=== PATIENT | female | born 1955 | race Caucasian/White ===

== ENCOUNTER → 2018-02-24 07:36 | Outpatient (CLI) | payer OTHER, SELFPAY ==
[2018-02-24 09:06] LABS: Cholesterol 259 mg/dL (140-199); HDL Cholesterol 91 mg/dL (40-60); LDL Cholesterol Calculated 153 mg/dL (<100); Triglycerides 74 mg/dL (35-150)
== END ==
PROVIDERS: Visit Provider Internal Medicine
DX: E78.5 Hyperlipidemia, unspecified (principal)
CPT/HCPCS: 36415; 80061

== ENCOUNTER → 2018-03-07 13:06 | Outpatient (CLI) | payer OTHER, SELFPAY | PROVIDERS: Visit Provider Internal Medicine | DX: M85.852 Other specified disorders of bone density and structure, left thigh (principal); Z78.0 Asymptomatic menopausal state; R29.890 Loss of height; Z82.62 Family history of osteoporosis | CPT/HCPCS: 77080 ==

== ENCOUNTER → 2019-02-24 07:14 | Outpatient (CLI) | payer OTHER, SELFPAY ==
[2019-02-24 08:02] LABS: Add Manual Diff / Slide Review NO; Basophils Absolute Auto 0 /uL (0-100); Basophils Percent Auto 0.8 % (0-2); Eosinophils Absolute Auto 200 /uL (0-450); Eosinophils Percent Auto 3.7 % (2-4); Hematocrit 38.1 % (36-46); Hemoglobin 12.9 g/dL (12.0-16.0); Lymphocytes Absolute Auto 2200 /uL (1100-4500); Lymphocytes Percent Auto 40.2 % (25-40); Mean Corpuscular HGB Conc 33.9 % (30-36); Mean Corpuscular Hemoglobin 29.7 PG (26-34); Mean Corpuscular Volume 87.5 fL (80-100); Monocytes Absolute Auto 400 /uL (0-900); Monocytes Percent Auto 7.3 % (3-14); Neutrophils Absolute Auto 2700 /uL (1500-7000); Platelet Count 205 X10^3/uL (150-400); Red Blood Cell Count 4.35 X10^6/uL (4.0-5.2); Red Cell Distribution Width 13.4 % (11.6-14.8); White Blood Cell Count 5.5 X10^3/uL (4.5-11.0)
[2019-02-24 08:13] LABS: Alanine Aminotransferase 15 IU/L (9-52); Albumin 4.1 g/dL (3.5-5.0); Albumin Globulin Ratio 1.5 (1.0-2.8); Alkaline Phosphatase 84 U/L (38-126); Aspartate Aminotransferase 33 IU/L (14-36); BUN Creatinine Ratio 18.6 (6-22); Bilirubin Total 0.5 mg/dL (0.2-1.3); Blood Urea Nitrogen 13 mg/dL (7-17); Calcium 9.7 mg/dL (8.4-10.2); Carbon Dioxide 30 mmol/L (22-32); Chloride 100 mmol/L (98-107); Cholesterol 272 mg/dL (140-199); Estimated Glomerular Filt Rate > 60.0 mL/min (>60); Globulin 2.7 g/dL (1.7-4.1); Glucose 95 mg/dL (80-110); HDL Cholesterol 84 mg/dL (40-60); HEMOLYSIS < 15 (0-50); LDL Cholesterol Calculated 175 mg/dL (<100); Potassium 4.1 mmol/L (3.4-5.1); Sodium 136 mmol/L (137-145); Total Protein 6.8 g/dL (6.3-8.2); Triglycerides 66 mg/dL (35-150)
[2019-02-24 09:00] LABS: Vitamin B12 388 pg/mL (239-931)
[2019-02-24 09:37] LABS: Iron 66 ug/dL (37-170)
== END ==
PROVIDERS: PCP Family Medicine; Visit Provider Family Medicine
DX: D64.9 Anemia, unspecified (principal); E53.8 Deficiency of other specified B group vitamins
CPT/HCPCS: 36415; 80053; 80061; 82607; 83540; 85025

== ENCOUNTER → 2019-03-25 13:42 | Outpatient (CLI) | payer OTHER, SELFPAY ==
--- NOTE | 2019-03-25 13:43 | DI.MG.S_ITS ---
BILATERAL DIGITAL SCREENING MAMMOGRAM 3D/2D WITH CAD: 03/25/2019 CLINICAL: Routine screening. Comparison is made to exams dated: 01/25/2017 mammogram, 10/21/2014 mammogram, and 09/29/2012 mammogram - [facility]. The tissue of both breasts is extremely dense, which lowers the sensitivity of mammography. Current study was also evaluated with a Computer Aided Detection (CAD) system. No significant masses, calcifications, or other findings are seen in either breast. There has been no significant interval change. IMPRESSION: NEGATIVE There is no mammographic evidence of malignancy. A 1 year screening mammogram is recommended. This exam was interpreted at Station ID: [id number]. NOTE: For mammograms, a report in lay terms will be sent to the patient. Approximately 15% of breast malignancies will not be visualized mammographically. In the management of a palpable breast mass, a negative mammogram must not discourage biopsy of a clinically suspicious lesion. Electronically Signed By: Caroline dunham/carmelina:03/25/2019 14:32:04 letter sent: Normal Exam ACR BI-RADS Category 1: Negative 3341F
== END ==
PROVIDERS: PCP Family Medicine; Visit Provider Family Medicine
DX: Z12.31 Encounter for screening mammogram for malignant neoplasm of breast (principal)
CPT/HCPCS: 77063; 77067

== ENCOUNTER → 2020-04-28 07:10 | Outpatient (CLI) | payer OTHER, SELFPAY ==
[2020-04-28 08:27] LABS: Add Manual Diff / Slide Review NO; Basophils Absolute Auto 0 /uL (0-100); Basophils Percent Auto 0.9 % (0-2); Eosinophils Absolute Auto 100 /uL (0-450); Eosinophils Percent Auto 2.7 % (2-4); Hematocrit 38.1 % (36-46); Hemoglobin 12.7 g/dL (12.0-16.0); Lymphocytes Absolute Auto 1700 /uL (1100-4500); Lymphocytes Percent Auto 38.5 % (25-40); Mean Corpuscular HGB Conc 33.3 % (30-36); Mean Corpuscular Hemoglobin 29.3 PG (26-34); Mean Corpuscular Volume 88.1 fL (80-100); Monocytes Absolute Auto 400 /uL (0-900); Monocytes Percent Auto 8.5 % (3-14); Neutrophils Absolute Auto 2200 /uL (1500-7000); Neutrophils Percent Auto 49.4 % (50-75); Platelet Count 206 X10^3/uL (150-400); Red Blood Cell Count 4.32 X10^6/uL (4.0-5.2); Red Cell Distribution Width 13.7 % (11.6-14.8); White Blood Cell Count 4.5 X10^3/uL (4.5-11.0)
[2020-04-28 08:39] LABS: Alanine Aminotransferase 18 IU/L (<35); Albumin 4.3 g/dL (3.5-5.0); Albumin Globulin Ratio 1.5 (1.0-2.8); Alkaline Phosphatase 88 U/L (38-126); Aspartate Aminotransferase 32 IU/L (14-36); BUN Creatinine Ratio 16.4 (6-22); Bilirubin Total 0.4 mg/dL (0.2-1.3); Blood Urea Nitrogen 12 mg/dL (7-17); Calcium 9.5 mg/dL (8.4-10.2); Carbon Dioxide 29 mmol/L (22-32); Chloride 104 mmol/L (98-107); Cholesterol 249 mg/dL (140-199); Estimated Glomerular Filt Rate > 60.0 mL/min (>60); Globulin 2.9 g/dL (1.7-4.1); Glucose 89 mg/dL (80-110); HDL Cholesterol 84 mg/dL (40-60); HEMOLYSIS < 15 (0-50); LDL Cholesterol Calculated 151 mg/dL (<100); Potassium 3.9 mmol/L (3.4-5.1); Sodium 138 mmol/L (137-145); Total Protein 7.2 g/dL (6.3-8.2); Triglycerides 70 mg/dL (35-150)
[2020-04-28 09:09] LABS: Thyroid Stimulating Hormone 2.88 uIU/mL (0.47-4.68)
== END ==
PROVIDERS: PCP Family Medicine; Referring Provider Family Medicine; Visit Provider Family Medicine
DX: Z13.0 Encounter for screening for diseases of the blood and blood-forming organs and certain disorders involving the immune mechanism (principal); Z13.1 Encounter for screening for diabetes mellitus; Z13.29 Encounter for screening for other suspected endocrine disorder; E78.5 Hyperlipidemia, unspecified
CPT/HCPCS: 36415; 80053; 80061; 84443; 85025

== ENCOUNTER → 2020-06-04 10:17 | Outpatient (CLI) | payer OTHER, SELFPAY ==
[2020-06-05 16:10] LABS: COVID19 Sendout Not Detected (Not Detect)
== END ==
PROVIDERS: PCP Family Medicine; Visit Provider Physician Assistant
DX: Z11.59 Encounter for screening for other viral diseases (principal)
CPT/HCPCS: 87635

== ENCOUNTER 2020-06-07 07:15 | Day surgery (SDC) | payer OTHER, SELFPAY ==
[2020-06-07] VITALS (7 sets, daily range): BP systolic 117–144; BP diastolic 68–77; PULSE 53–77; RESP 10–16; TEMP 36.6–36.7; O2SAT 98–100; BMI 20.1
--- NOTE | 2020-06-07 | PATH_ITS ---
[facility] Accession Number: [id number] . 01 Material submitted: . colon - POLYP AT 70CM . 01 Clinical history: . SDC . 02 Diagnosis: Polyp at 70 cm: Tubular adenoma. MRV 06/09/2020 1525 Local . 02 Electronically signed: . Honey Salazar MD, Pathologist NPI- [id number] . 01 Gross description: . POLYP AT 70CM: Received in formalin is 1 fragment(s) of guerrero, soft tissue measuring 0.4 x 0.3 x 0.2 cm submitted entirely in 1 cassette(s) /ARLET 06/09/2020 0101 Local . 02 Pathologist provided ICD-10: Z12.11, Z86.010, K63.5 . 02 CPT . 428339 Performed at: 01 [facility] [address] [id number] MD Brian Miller MD Phone: [phone] Performed at: 02 [facility] [address] [place], [place] [id number] MD Gabrielle Palacios MD Phone: [phone]
--- NOTE | 2020-06-07 07:46 | PM.HP.1 ---
History of Present Illness History of Present Illness Date Patient Seen: 06/07/20 Time Patient Seen: 07:40 Chief complaint: SDC Narrative: The patient is a woman whose last colonoscopy was about 5 years ago. She had polyps removed. She is here for a screening exam in a high risk screw. No family history of colon cancer. Patient History Medical History Atrial fibrillation (Chronic ~2017) Back problem (Chronic) Depression (Chronic) Migraines (Chronic) Osteoarthritis (Chronic) Osteopenia (Chronic) Scoliosis (Chronic) Skin problem (Chronic) Surgical History History of breast biopsy (Resolved ~1989) Status post wrist surgery (Resolved ~2011) Family & Social History Family History Father Skin cancer Heart disease Hypertension Mother Cancer Brother Hyperlipidemia Sister Skin cancer Grandfather Cancer Grandmother Cancer Grandfather Stroke Social History: household members spouse lives independently Yes Tobacco & Substance use: Smoking Status Never smoker alcohol intake current Substance Use Type does not use Meds Home Medications and Allergies Home Medications Medication Instructions Recorded Confirmed Type supplements - see scans 12/03/18 PO 12/03/18 05/06/20 History acetaminophen 300 mg-codeine 30 mg See Rx Instructions PO DAILY PRN 04/27/19 05/06/20 Rx tablet #60 tab methocarbamol 750 mg tablet 750 mg PO QID #60 tab 05/12/19 05/06/20 Rx sumatriptan succinate 100 mg tablet See Rx Instructions PO .COMPLEX 08/03/19 05/06/20 Rx #10 tab stsxhtrucp-jyqjfebuljyqp-clprxzrx 1 tab PO Q4H PRN #30 tab 10/12/19 05/06/20 Rx 50 mg-325 mg-40 mg tablet trazodone 100 mg tablet See Rx Instructions .ROUTE 04/01/20 05/06/20 Rx .COMPLEX #60 tab hydroquinone 4 % topical cream 1 applictn TOP DAILY #28.35 gram 05/06/20 05/06/20 Rx tretinoin 0.1 % topical cream 1 applictn TOP BEDTIME #20 gram 05/06/20 05/06/20 Rx Allergies Allergy/AdvReac Type Severity Reaction Status Date / Time No Known Drug Allergies Allergy Verified 05/06/20 08:37 Review of Systems Review of Systems ROS: Yes All systems reviewed with the patient and are negative except as otherwise documented Exam Vital Signs (past 8 hours): - 06/07/20 07:34 Temperature 98 F Pulse Rate 62 Respiratory Rate 16 Blood Pressure 144/77 H Pulse Oximetry 99 Oxygen Delivery Method Room Air Narrative Exam Narrative: Pleasant cooperative patient no apparent distress. Lungs are clear to auscultation. No rales or rhonchi. Heart regular rate and rhythm no murmur gallop. Abdomen is soft nontender without mass. No obvious hernias. Patient is alert and oriented x3. Assessment & Plan Assessment & Plan narrative: The patient for a screening colonoscopy. I have discussed the procedure with them. Risks of bleeding, perforation which would necessitate major operation, failure to find remove all lesions, the potential tattoo were all discussed. All questions were answered. They wished to proceed.
--- NOTE | 2020-06-07 07:48 | PM.PREOP ---
Pre-operative Note COVID-19 COVID-19 status: Negative Result date/Date tested (Pos, Neg/Pending): 06/04/20 Interval Note History & Physical reviewed/Exam performed by Physician: Yes Changes to H&P: No ASA Class (for procedural sedation): I
[2020-06-07] MEDS: LACTATED RINGERS 1,000 ML 150 ML IV (07:50)
[2020-06-07] MEDS: fentaNYL 250 MCG/5 ML INJ IV (07:56)
[2020-06-07] MEDS: MIDAZOLAM 5 MG/5 ML VIAL IV (07:56)
--- NOTE | 2020-06-07 08:39 | PM.OP.ENDO ---
Operative Date/Time/Diagnoses Date of procedure: 06/07/20 Time of procedure: 08:29 Pre-op diagnosis: History of polyps Post-op diagnosis: same (Single polyp at 70 cm) Procedure & Clinicians Study performed: Colonoscopy with cold biopsy Same procedure as scheduled: Yes Indications: Screening and high risk group. Last colonoscopy was 5 years ago. Surgeon: Francis Nation Procedure Notes SCOAP/Timeout: Performed Procedure in detail: The patient was placed in the left lateral decubitus position and underwent IV sedation directed by the surgeon consisting of fentanyl and Versed. Digital exam was unremarkable. The scope was inserted and advanced through the rectum into the sigmoid, descending, transverse, and ascending colon. Her colon was quite redundant. There was a small polyp at 70 cm which was removed on the way in with biopsy forceps. The cecum was reached identified by the ileocecal valve and the appendiceal opening. The patient had to be repositioned, pressure applied and a stiffener inserted to get there. The scope was gradually brought out. No other Polyps were found. The scope ultimately was retroflexed in the rectum. The appearance was remarkable for internal hemorrhoids without ulceration.. The scope was removed and the patient tolerated the procedure well. The prep was good. Scope withdrawal time: 7 minutes Sedation minutes: 37 Findings: polyp Specimen(s): other (Polyp at 70 cm) Complications: none Post-procedure Recommendations: Colonscopy in 5 years Follow up: as needed Disposition: PACU
== END 2020-06-07 09:25 | disposition home or self-care (01) ==
PROVIDERS: PCP Family Medicine; Referring Provider Specialist; Visit Provider Specialist
PROC: 0DJD8ZZ Inspection of Lower Intestinal Tract, Via Natural or Artificial Opening Endoscopic (ICD-10-PCS; CPT 45378; principal; 2020-06-07 07:45)
DX: Z12.11 Encounter for screening for malignant neoplasm of colon (principal); Z86.010 Personal history of colon polyps; I48.91 Unspecified atrial fibrillation; F32.9 Major depressive disorder, single episode, unspecified; D12.6 Benign neoplasm of colon, unspecified
CPT/HCPCS: 45380; 99152; 99153; J2250; J3010

== ENCOUNTER → 2020-06-23 09:52 | Outpatient (CLI) | payer OTHER, SELFPAY | PROVIDERS: PCP Family Medicine; Referring Provider Family Medicine; Visit Provider Family Medicine | DX: Z13.820 Encounter for screening for osteoporosis (principal); M85.852 Other specified disorders of bone density and structure, left thigh; Z78.0 Asymptomatic menopausal state; Z82.62 Family history of osteoporosis | CPT/HCPCS: 77080 ==

== ENCOUNTER → 2021-01-09 10:02 | Outpatient (CLI) | payer OTHER, SELFPAY ==
--- NOTE | 2021-01-09 10:03 | DI.RAD.S_ITS ---
PROCEDURE: XR LUMBAR SPINE MIN 4V INDICATIONS: low back pain TECHNIQUE: 5 views of the lumbar spine were acquired, including bilateral oblique views. COMPARISON: None. FINDINGS: Bones: 5 nonrib-bearing vertebrae are present. There is approximately 20? of convex left lumbar spine scoliosis. Vertebral body alignment is within normal limits. No vertebral body compression fractures. No suspicious bony lesions. Moderate L1-L2, L2-L3, L3-L4, L4-L5 and L5-S1 degenerative disc disease. Moderate L2-L3, L3-L4, L4-L5 and L5-S1 facet arthropathy. Soft tissues: Overlying bowel gas pattern is normal. No suspicious soft tissue calcifications. Oblique images: No pars defects. IMPRESSION: 1. Convex left scoliosis. 2. Multilevel degenerative disc disease. 3. Multilevel facet arthropathy. 4. No fracture. No acute osseous lesion. If symptoms and/or clinical suspicion for pathology persists, evaluation with MRI should be considered for further assessment. Dictated by: Lela Calvin MD, PhD on 01/09/2021 at 17:25 Approved by: Lela Calvin MD, PhD on 01/09/2021 at 17:27
== END ==
PROVIDERS: PCP Family Medicine; Referring Provider Family Medicine; Visit Provider Family Medicine
DX: M54.5 Low back pain (principal); M51.36 Other intervertebral disc degeneration, lumbar region; M51.37 Other intervertebral disc degeneration, lumbosacral region; M47.816 Spondylosis without myelopathy or radiculopathy, lumbar region; M47.817 Spondylosis without myelopathy or radiculopathy, lumbosacral region; M41.86 Other forms of scoliosis, lumbar region
CPT/HCPCS: 72110

== ENCOUNTER → 2021-05-08 09:38 | Outpatient (CLI) | payer OTHER, SELFPAY ==
[2021-05-08 11:41] LABS: Alanine Aminotransferase 23 IU/L (<35); Albumin 4.3 g/dL (3.5-5.0); Albumin Globulin Ratio 1.6 (1.0-2.8); Alkaline Phosphatase 79 U/L (38-126); Aspartate Aminotransferase 37 IU/L (14-36); BUN Creatinine Ratio 16.9 (6-22); Bilirubin Total 0.5 mg/dL (0.2-1.3); Blood Urea Nitrogen 13 mg/dL (7-17); Calcium 9.5 mg/dL (8.4-10.2); Carbon Dioxide 28 mmol/L (22-32); Chloride 103 mmol/L (98-107); Estimated Glomerular Filt Rate > 60.0 mL/min (>60); Globulin 2.7 g/dL (1.7-4.1); Glucose 87 mg/dL (80-110); HEMOLYSIS < 15 (0-50); Potassium 3.8 mmol/L (3.4-5.1); Sodium 136 mmol/L (137-145)
== END ==
PROVIDERS: PCP Family Medicine; Referring Provider Family Medicine; Visit Provider Family Medicine
DX: M85.89 Other specified disorders of bone density and structure, multiple sites (principal); Z13.1 Encounter for screening for diabetes mellitus
CPT/HCPCS: 36415; 80053

== ENCOUNTER → 2021-06-20 08:27 | Outpatient (CLI) | payer OTHER, SELFPAY ==
--- NOTE | 2021-06-20 | DI.MG.S_ITS ---
BILATERAL DIGITAL SCREENING MAMMOGRAM 3D/2D WITH CAD: 06/20/2021 CLINICAL: Routine screening. Comparison is made to exams dated: 03/25/2019 mammogram, 01/25/2017 mammogram, and 10/21/2014 mammogram - [facility]. The tissue of both breasts is extremely dense, which lowers the sensitivity of mammography. Current study was also evaluated with a Computer Aided Detection (CAD) system. No significant masses, calcifications, or other findings are seen in either breast. There has been no significant interval change. IMPRESSION: NEGATIVE There is no mammographic evidence of malignancy. A 1 year screening mammogram is recommended. This exam was interpreted at Station ID: [id number]. NOTE: For mammograms, a report in lay terms will be sent to the patient. Approximately 15% of breast malignancies will not be visualized mammographically. In the management of a palpable breast mass, a negative mammogram must not discourage biopsy of a clinically suspicious lesion. Electronically Signed By: Iftikhar guy/carmelina:06/20/2021 10:44:40 letter sent: Normal Exam ACR BI-RADS Category 1: Negative 3341F
== END ==
PROVIDERS: PCP Family Medicine; Referring Provider Family Medicine; Visit Provider Family Medicine
DX: Z12.31 Encounter for screening mammogram for malignant neoplasm of breast (principal)
CPT/HCPCS: 77063; 77067

== ENCOUNTER → 2021-07-10 09:23 | Outpatient (CLI) | payer OTHER, SELFPAY ==
[2021-07-10 12:06] LABS: Alanine Aminotransferase 19 IU/L (<35); Albumin 4.3 g/dL (3.5-5.0); Albumin Globulin Ratio 1.7 (1.0-2.8); Alkaline Phosphatase 68 U/L (38-126); Amylase 84 U/L (30-110); Aspartate Aminotransferase 32 IU/L (14-36); BUN Creatinine Ratio 19.5 (6-22); Bilirubin Total 0.4 mg/dL (0.2-1.3); Blood Urea Nitrogen 15 mg/dL (7-17); Calcium 9.8 mg/dL (8.4-10.2); Carbon Dioxide 29 mmol/L (22-32); Chloride 103 mmol/L (98-107); Estimated Glomerular Filt Rate > 60.0 mL/min (>60); Globulin 2.6 g/dL (1.7-4.1); Glucose 92 mg/dL (80-110); HEMOLYSIS < 15 (0-50); Lipase 117 U/L (23-300); Potassium 4.8 mmol/L (3.4-5.1); Sodium 138 mmol/L (137-145); Total Protein 6.9 g/dL (6.3-8.2)
== END ==
PROVIDERS: PCP Family Medicine; Referring Provider Family Medicine; Visit Provider Family Medicine
DX: R10.13 Epigastric pain (principal); R14.0 Abdominal distension (gaseous)
CPT/HCPCS: 36415; 80053; 82150; 83690

== ENCOUNTER → 2021-07-14 14:07 | Outpatient (CLI) | payer OTHER, SELFPAY ==
[2021-07-17 11:31] LABS: H. Pylori Antigen Stool Negative (Negative)
== END ==
PROVIDERS: PCP Family Medicine; Referring Provider Family Medicine; Visit Provider Family Medicine
DX: R10.13 Epigastric pain (principal); R14.0 Abdominal distension (gaseous)
CPT/HCPCS: 87338

== ENCOUNTER → 2021-07-17 08:09 | Outpatient (CLI) | payer OTHER, SELFPAY ==
--- NOTE | 2021-07-17 08:12 | DI.US.S_ITS ---
PROCEDURE: US ABDOMEN COMPLETE INDICATIONS: EPIGASTRIC PAIN; BLOATING TECHNIQUE: Real-time scanning was performed of the abdominal and retroperitoneal organs, with image documentation. COMPARISON: [facility], US, ABDOMEN COMPLETE, 01/05/2014, 9:02. FINDINGS: Liver: Liver is normal in size and homogeneous in echotexture. Gallbladder: No findings of gallstones or sludge are seen. The gallbladder wall is not thickened, measuring 3 mm or less. No specific pericholecystic fluid is seen. The sonographic Lloyd sign is negative. Biliary ducts: Intrahepatic bile ducts are non-dilated. Extrahepatic bile duct caliber measures 4 mm. Normal is 6-7 mm or less in diameter, or 10 mm or less post-cholecystectomy. Pancreas: Visualized portions of the pancreas are sonographically normal. Spleen: Spleen is normal in size and homogeneous in echotexture. Kidneys: Kidneys are normal in size and echotexture. Right kidney measures 10.9 cm long; left kidney measures 10.7 cm long. No hydronephrosis or nephrolithiasis. No solid masses. Aorta: Visualized aorta is normal in caliber at less than 3 cm. Iliacs: Proximal common iliac arteries are normal in caliber at less than 2.5 cm. IVC: Intrahepatic inferior vena cava is patent. Miscellaneous: No free abdominal fluid. IMPRESSION: Normal. The gallbladder demonstrates a normal sonographic appearance. No biliary dilatation is seen. Dictated by: Casey Pineda M.D. on 07/17/2021 at 9:00 Approved by: Casey Pineda M.D. on 07/17/2021 at 9:00
== END ==
PROVIDERS: PCP Family Medicine; Referring Provider Family Medicine; Visit Provider Family Medicine
DX: R10.13 Epigastric pain (principal); R14.0 Abdominal distension (gaseous)
CPT/HCPCS: 76700

== ENCOUNTER → 2021-07-19 07:51 | Outpatient (CLI) | payer OTHER, SELFPAY ==
--- NOTE | 2021-07-19 07:52 | DI.US.S_ITS ---
PROCEDURE: US PELVIC COMPLETE INDICATIONS: Lower abdominal bloating TECHNIQUE: Real-time scanning was performed of the pelvic organs, with image documentation. Additional endovaginal scanning was necessary due to incomplete visualization of the adnexal and endometrial structures by transabdominal scanning. COMPARISON: [facility], US, PELVIC COMPLETE, 01/05/2014, 9:12. FINDINGS: Uterus: Heterogeneous echotexture, anteverted, and measures 4.9 x 4.5 x 2.1 cm. The endometrium measures 3 mm in combined thickness. A hypoechoic lesion is seen in the cervix, measuring up to 8.6 mm, which may reflect a complex nabothian cyst. Ovaries: The right ovary measures 2.5 x 1.3 x 1.1 cm. The left ovary measures 2.2 x 1.6 x 1.6 cm. Other: No pathologic free abdominal or pelvic fluid. Prominence of the right adnexal vein, which enlarges with Valsalva. Prominent bowel was noted throughout the duration of the examination. IMPRESSION: 1. No significant intrapelvic abnormality. 2. Prominence of the right adnexal vein, which may be seen in the setting of pelvic congestion. Dictated by: Emmett Fernando M.D. on 07/19/2021 at 10:45 Approved by: Emmett Fernando M.D. on 07/19/2021 at 10:50
== END ==
PROVIDERS: PCP Family Medicine; Referring Provider Family Medicine; Visit Provider Family Medicine
DX: R14.0 Abdominal distension (gaseous) (principal)
CPT/HCPCS: 76856

== ENCOUNTER → 2021-08-14 13:47 | Outpatient (CLI) | payer OTHER, SELFPAY ==
[2021-08-14 15:13] LABS: COVID19 -Nasal RAPID Negative (Negative)
== END ==
PROVIDERS: PCP Family Medicine; Referring Provider Physician Assistant; Visit Provider Physician Assistant
DX: Z20.822 Contact with and (suspected) exposure to COVID-19 (principal); R05.9 Cough, unspecified; R51.9 Headache, unspecified
CPT/HCPCS: 87635

== ENCOUNTER → 2021-08-18 09:18 | Outpatient (CLI) | payer OTHER, SELFPAY ==
[2021-08-18 11:38] LABS: COVID19 -Nasal RAPID Negative (Negative)
== END ==
PROVIDERS: PCP Family Medicine; Visit Provider Nurse Practitioner Family
DX: Z20.822 Contact with and (suspected) exposure to COVID-19 (principal); R05.9 Cough, unspecified; R68.83 Chills (without fever)
CPT/HCPCS: 87635

== ENCOUNTER → 2021-09-08 09:51 | Outpatient (CLI) | payer OTHER, SELFPAY ==
--- NOTE | 2021-09-08 09:52 | DI.RAD.S_ITS ---
PROCEDURE: XR CHEST 2V INDICATIONS: chronic cough, Fhx lung CA TECHNIQUE: 2 views of the chest were acquired. COMPARISON: None. FINDINGS: Surgical changes and devices: None. Lungs and pleura: Lungs are clear. No pleural effusions or pneumothorax. Mediastinum: Mediastinal contours are normal. Heart size is normal. Bones and chest wall: No suspicious bony abnormalities. Soft tissues appear unremarkable. IMPRESSION: No acute cardiopulmonary abnormality Dictated by: Graeme Higgins M.D. on 09/08/2021 at 9:43 Approved by: Graeme Higgins M.D. on 09/08/2021 at 9:44
== END ==
PROVIDERS: PCP Family Medicine; Referring Provider Physician Assistant; Visit Provider Physician Assistant
DX: R05.8 Other specified cough (principal); Z80.1 Family history of malignant neoplasm of trachea, bronchus and lung
CPT/HCPCS: 71046

== ENCOUNTER → 2021-10-02 10:34 | Outpatient (CLI) | payer MEDICARE, SELFPAY ==
[2021-10-02 12:41] LABS: COVID19 -Nasal RAPID Negative (Negative)
== END ==
PROVIDERS: PCP Family Medicine; Referring Provider Ophthalmology; Visit Provider Ophthalmology
DX: Z20.822 Contact with and (suspected) exposure to COVID-19 (principal)
CPT/HCPCS: 87635; C9803

== ENCOUNTER 2021-10-03 11:19 | Day surgery (SDC) | payer MEDICARE, SELFPAY ==
[2021-10-03 11:34] VITALS: BP 150/71; PULSE 63; RESP 14; TEMP 36.6; O2SAT 98
[2021-10-03] MEDS: CATARACT EYE COMPOUND (10 DROPS/SYRINGE) 3 DROPS EYE-OP (11:39)
[2021-10-03] MEDS: PROPARACAINE 0.5% OPHTH SOL 2 DROPS EYE-OP (11:39)
[2021-10-03 11:47] VITALS: BMI 20.2
--- NOTE | 2021-10-03 12:30 | SUR.OPER ---
Supine on eye stretcher, head on extension cradle secured with tape. Arms tucked at sides with blanket. Pillow under knees.
--- NOTE | 2021-10-03 12:32 | P.OP.PRE_ITS ---
Pre-operative Note Interval Note History & Physical reviewed/Exam performed by Physician: Yes Changes to H&P: No Addendum Addendum Note: There are no non surgical alternatives to the patients condition. Without lloyd rgery deterioration of the patients condition will occur. There is the possibility that delay results in more complex future surgery.
--- NOTE | 2021-10-03 12:33 | PM.OP.1 ---
Operative Date/Time/Diagnoses Pre-op diagnosis: Nuclear cataract right eye Procedure & Clinicians Procedure: Cataract Surgery Same procedure as scheduled: Yes Surgeon: Jerry Colón Anesthesia Type: MAC +/- and Sedation Operative Notes Procedure in detail: Patient brought to the operating suite. Tetracaine drops placed in the right eye. Marking instrument was used to linda the vertical and horizontal meridians. Patient was prepped and draped in sterile manner. Wire lid speculum was placed in the eye. Marking instrument was used to linda 20 degree meridian. Betadine drops were placed on the eye. This was irrigated. Lidocaine jelly was placed on the eye. A paracentesis port was created with a side-port blade. 0.1 mL 1% preservative free lidocaine was injected into the anterior chamber. The anterior chamber was deepened with viscoelastic. 2.6 mm keratome was used to create a temporal clear corneal incision. Cystotome and Utrata forceps were used to create continuous tear capsulorrhexis. Balanced salt solution was used to hydro dissect the nucleus. The phacoemulsification handpiece was inserted and the nucleus was removed using the stop and chop technique. The irrigation aspiration handpiece was inserted and the remaining cortex was removed. Anterior chamber was deepened with viscoelastic. An Mcfarland [id number] intraocular lens with a power of 19.5 was injected into the capsular bag. Irrigation aspiration handpiece was inserted and the remaining viscoelastic was removed. The lens was rotated to the 20 degree meridian. Incision was hydrated with balanced salt solution and found to be leak free with pressure with Weck-Hilaria sponges. 0.1 mL Vigamox injected anterior chamber. 0.3 mL Kenalog 10 mg was injected subconjunctivally. Lid speculum was removed. The patient left the operating room in excellent condition. Complications: none Post-operative Condition: stable Disposition: same day surgery
[2021-10-03] MEDS: HYALURONATE SODIUM 30 MG-10 MG/ML SYRINGES 1 BOX INTRAOCULA (12:43)
[2021-10-03] MEDS: MOXIFLOXACIN INJ 4 MG/0.8 ML VIAL 0.5 MG EYE-OP (12:43)
[2021-10-03] MEDS: PHENYLEPHRINE/LIDOCAINE VIAL (OR) 0.2 ML EYE-OP (12:44)
[2021-10-03] MEDS: TRIAMCINOLONE 50 MG/5 ML VIAL INJ (12:45)
[2021-10-03] MEDS: TETRACAINE 0.5% OPHTH DROPS 4 ML 2 DROPS EYE-OP (12:45)
[2021-10-03] MEDS: BALANCED SALT IRRIG SOLN NO.2 500 ML, EPINEPHrine 1 MG IRR (12:45)
[2021-10-03] MEDS: LIDOCAINE 2% (GLYDO) 6 ML GEL TOP (12:46)
[2021-10-03 12:57] VITALS: BP 129/79; PULSE 68; RESP 14; TEMP 36.4; O2SAT 98
== END 2021-10-03 13:14 | disposition home or self-care (01) ==
PROVIDERS: PCP Family Medicine; Referring Provider Ophthalmology; Visit Provider Ophthalmology
PROC: (CPT 66984; principal; 2021-10-03 13:15)
DX: H25.11 Age-related nuclear cataract, right eye (principal); F32.9 Major depressive disorder, single episode, unspecified; R51.9 Headache, unspecified
CPT/HCPCS: 66984; J0171; J2250; J3010; J3301; V2787

== ENCOUNTER → 2021-10-16 09:46 | Outpatient (CLI) | payer MEDICARE, SELFPAY ==
[2021-10-16 11:36] LABS: COVID19 -Nasal RAPID Negative (Negative)
== END ==
PROVIDERS: PCP Family Medicine; Visit Provider Family Medicine Sleep Medicine
DX: Z20.822 Contact with and (suspected) exposure to COVID-19 (principal)
CPT/HCPCS: 87635; C9803

== ENCOUNTER 2021-10-17 06:29 | Day surgery (SDC) | payer MEDICARE, SELFPAY ==
[2021-10-17] MEDS: PROPARACAINE 0.5% OPHTH SOL 2 DROPS EYE-OP (06:50)
[2021-10-17] MEDS: CATARACT EYE COMPOUND (10 DROPS/SYRINGE) 3 DROPS EYE-OP (06:51)
[2021-10-17 06:53] VITALS: BP 138/66; PULSE 56; RESP 16; TEMP 36.4; O2SAT 100; BMI 20.5
--- NOTE | 2021-10-17 07:36 | P.OP.PRE_ITS ---
Pre-operative Note Interval Note History & Physical reviewed/Exam performed by Physician: Yes Changes to H&P: No Addendum Addendum Note: There are no non surgical alternatives to the patient's condition. Deteriort ation of the patient's condition is expected without treatment. Delay may result in more complex future surgery.
--- NOTE | 2021-10-17 07:37 | P.OP_ITS ---
Operative Date/Time/Diagnoses Pre-op diagnosis: Nuclear Cataract Left eye Post-op diagnosis: same Procedure & Clinicians Same procedure as scheduled: Yes Surgeon: Jerry Colón Anesthesia Type: MAC +/- and Sedation Operative Notes Procedure in detail: Patient brought to the operating suite. Tetracaine drops placed in the left eye. Placewordking instrument was used to linda the vertical and horizontal meridians. Patient was prepped and draped in sterile manner. Wire lid speculum was placed in the eye. Betadine drops were placed on the eye. This was irrigated. Lidoc jenna jelly was placed on the eye. A paracentesis port was created with a side- port blade. 0.1 mL 1% preservative free lidocaine was injected into the anterior chamber. The anterior chamber was deepened with viscoelastic. 2.6 mm keratome was used to create a temporal clear corneal incision. Cystotome and Utrata forceps were used to create continuous tear capsulorrhexis. Balanced salt solution was used to hydro dissect the nucleus. The phacoemulsification handpiece was inserted and the nucleus was removed using the stop and chop technique. The irrigation aspiration handpiece was inserted and the remaining cortex was removed. Anterior chamber was deepened with viscoelastic. An Mcfarland [id number] intraocular lens with a power of 16.5 was injected into the capsular bag. Irrigation aspiration handpiece was inserted and the remaining viscoelastic was removed. The lens was rotated to the 180 degree meridian. Incision was hydrated with balanced salt solution and found to be leak free with pressure with Weck- Hilaria sponges. 0.1 mL Vigamox injected anterior chamber. 0.3 mL Kenalog 10 mg was injected subconjunctivally. Lid speculum was removed. The patient left the operating room in excellent condition. Complications: none Post-operative Condition: stable Disposition: same day surgery
[2021-10-17] MEDS: HYALURONATE SODIUM 30 MG-10 MG/ML SYRINGES 1 BOX INTRAOCULA (07:48)
[2021-10-17] MEDS: PHENYLEPHRINE/LIDOCAINE VIAL (OR) 0.2 ML EYE-OP (07:48)
[2021-10-17] MEDS: MOXIFLOXACIN INJ 4 MG/0.8 ML VIAL 0.5 MG EYE-OP (07:48)
[2021-10-17] MEDS: BALANCED SALT IRRIG SOLN NO.2 500 ML, EPINEPHrine 1 MG IRR (07:49)
[2021-10-17] MEDS: TETRACAINE 0.5% OPHTH DROPS 4 ML 2 DROPS EYE-OP (07:49)
[2021-10-17] MEDS: TRIAMCINOLONE 50 MG/5 ML VIAL INJ (07:49)
[2021-10-17] MEDS: LIDOCAINE 2% (GLYDO) 6 ML GEL TOP (07:50)
--- NOTE | 2021-10-17 07:57 | SUR.OPER ---
Supine on eye stretcher, head on extension cradle secured with tape. Arms tucked at sides with blanket. Pillow under knees.
[2021-10-17 08:11] VITALS: BP 138/66; PULSE 56; RESP 14; TEMP 36.1; O2SAT 100
== END 2021-10-17 08:35 | disposition home or self-care (01) ==
PROVIDERS: PCP Family Medicine; Referring Provider Ophthalmology; Visit Provider Ophthalmology
PROC: (CPT 66984; principal; 2021-10-17 07:45)
DX: H25.12 Age-related nuclear cataract, left eye (principal)
CPT/HCPCS: 66984; J0171; J2250; J3010; J3301; V2787

== ENCOUNTER → 2022-07-23 07:54 | Outpatient (CLI) | payer MEDICARE, SELFPAY ==
--- NOTE | 2022-07-23 07:55 | DI.MG.S_ITS ---
BILATERAL DIGITAL SCREENING MAMMOGRAM 3D/2D WITH CAD: 07/23/2022 CLINICAL: Routine screening. Comparison is made to exams dated: 06/20/2021 mammogram, 03/25/2019 mammogram, 01/25/2017 mammogram, and 10/21/2014 mammogram - [facility]. Both breasts are heterogeneously dense, which may obscure small masses (category c / 51-75% glandular tissue). Current study was also evaluated with a Computer Aided Detection (CAD) system. There are benign post operative findings in the right breast. No significant masses, calcifications, or other findings are seen in either breast. There has been no significant interval change. IMPRESSION: BENIGN There is no mammographic evidence of malignancy. A 1 year screening mammogram is recommended. Based on the Tyrer Cuzick model (a risk assessment model) the patient's lifetime risk is 10.1% and her 10 year risk is 5.3%. According to the ACR, ACS, and NCCN guidelines, an annual breast MRI exam along with mammogram is recommended if the patient's lifetime risk is 20% or greater. This exam was interpreted at Station ID: [id number]. NOTE: For mammograms, a report in lay terms will be sent to the patient. Approximately 15% of breast malignancies will not be visualized mammographically. In the management of a palpable breast mass, a negative mammogram must not discourage biopsy of a clinically suspicious lesion. Electronically Signed By: Dharmesh carmen/carmelina:07/23/2022 13:49:33 letter sent: Normal Exam ACR BI-RADS Category 2: Benign Finding(s) 3342F
== END ==
PROVIDERS: PCP Family Medicine; Referring Provider Family Medicine; Visit Provider Family Medicine
DX: Z12.31 Encounter for screening mammogram for malignant neoplasm of breast (principal)
CPT/HCPCS: 77063; 77067

== ENCOUNTER → 2022-08-03 14:09 | Outpatient (CLI) | payer MEDICARE, SELFPAY ==
[2022-08-03 16:02] LABS: Alanine Aminotransferase 21 IU/L (<35); Albumin 4.3 g/dL (3.5-5.0); Albumin Globulin Ratio 1.5 (1.0-2.8); Alkaline Phosphatase 63 U/L (38-126); Aspartate Aminotransferase 33 IU/L (14-36); BUN Creatinine Ratio 18.3 (6-22); Bilirubin Total 0.3 mg/dL (0.2-1.3); Blood Urea Nitrogen 13 mg/dL (7-17); Calcium 9.3 mg/dL (8.4-10.2); Carbon Dioxide 30 mmol/L (22-32); Chloride 101 mmol/L (98-107); Estimated Glomerular Filt Rate > 60 mL/min (>60); Globulin 2.9 g/dL (1.7-4.1); Glucose 77 mg/dL (80-110); HEMOLYSIS < 15 (0-50); Potassium 3.7 mmol/L (3.4-5.1); Sodium 139 mmol/L (137-145); Total Protein 7.2 g/dL (6.3-8.2)
[2022-08-03 16:24] LABS: Vitamin D 25 Hydroxy (D3) 48.5 ng/mL (30.0-100.0)
== END ==
PROVIDERS: PCP Family Medicine; Referring Provider Family Medicine; Visit Provider Family Medicine
DX: M85.852 Other specified disorders of bone density and structure, left thigh; Z92.23 Personal history of estrogen therapy; Z78.0 Asymptomatic menopausal state
CPT/HCPCS: 36415; 77080; 80053; 82306

== ENCOUNTER → 2023-05-15 13:35 | Outpatient (CLI) | payer MEDICARE, SELFPAY ==
[2023-05-15 16:01] LABS: TSH w/ Reflex to FT4 1.96 uIU/mL (0.47-4.68)
== END ==
PROVIDERS: PCP Family Medicine; Referring Provider Physician Assistant; Visit Provider Physician Assistant
DX: R53.83 Other fatigue (principal)
CPT/HCPCS: 36415; 84443

== ENCOUNTER → 2023-07-01 13:42 | Outpatient (CLI) | payer MEDICARE, SELFPAY ==
--- NOTE | 2023-07-01 13:43 | DI.RAD.S_ITS ---
PROCEDURE: XR KNEE LT 3V INDICATIONS: left knee pain TECHNIQUE: 3 views of the knee were acquired. COMPARISON: None. FINDINGS: Bones: No fractures or dislocations. No suspicious bony lesions. There is moderate femorotibial joint space narrowing and intercondylar osteophytosis. Soft tissues: No joint effusion. Chondrocalcinosis is present within the femorotibial joint. No suspicious soft tissue calcifications. IMPRESSION: 1. Moderate osteoarthritis. 2. Chondrocalcinosis. Differential diagnosis includes but is not limited to hemochromatosis, hyperparathyroidism, osteoarthritis and CPPD. Dictated by: Caroline Pelletier M.D. on 07/01/2023 at 15:23 Approved by: Caroline Pelletier M.D. on 07/01/2023 at 15:23
== END ==
PROVIDERS: PCP Family Medicine; Referring Provider Anesthesiology; Visit Provider Anesthesiology
DX: M25.562 Pain in left knee (principal); M17.12 Unilateral primary osteoarthritis, left knee; M11.262 Other chondrocalcinosis, left knee
CPT/HCPCS: 73562

== ENCOUNTER → 2023-07-02 09:31 | Outpatient (CLI) | payer MEDICARE, SELFPAY ==
--- NOTE | 2023-07-02 09:31 | DI.RAD.S_ITS ---
PROCEDURE: XR CERVICAL SPINE 4V OR 5V INDICATIONS: Neck pain TECHNIQUE: 5 views of the cervical spine acquired. COMPARISON: [facility], , C-SPINE WITHOUT CONTRAST, 12/29/2015, 14:25. FINDINGS: Bones: No fractures or dislocations to the T1 level. 2 mm grade 1 anterolisthesis at the C7-T1. Multilevel disc space narrowing degenerative endplate changes are seen that appear mildly progressed when compared to the MRI from 12/29/2015. Multilevel uncovertebral joint and facet hypertrophy are present. Findings result in multilevel neural foraminal narrowing is seen on oblique views, most notably at the C4-5 and C5-6 levels bilaterally. Soft tissues: No prevertebral soft tissue swelling. IMPRESSION: Moderate to severe multilevel spondylosis with high-grade neural foraminal narrowing, likely progressed when compared to the MRI from 12/29/2015. Approved by: Donovan Durán M.D. on 07/02/2023 at 14:27
--- NOTE | 2023-07-02 09:31 | DI.RAD.S_ITS ---
PROCEDURE: XR LUMBAR SPINE MIN 4V INDICATIONS: Low back pain TECHNIQUE: 5 views of the lumbar spine acquired, including bilateral oblique views. COMPARISON: [facility], , XR LUMBAR SPINE MIN 4V, 01/09/2021, 10:01. FINDINGS: Bones: 5 nonrib-bearing vertebrae are present. There is levoconvex curvature of the lumbar spine. Mild grade 1 retrolisthesis at L1-2. Multilevel disc space narrowing degenerative endplate changes are noted. There is multilevel facet hypertrophy. No vertebral body compression fractures. No suspicious bony lesions. Soft tissues: Overlying bowel gas pattern is normal. No suspicious soft tissue calcifications. Obliques: No pars defects. IMPRESSION: Mild progression of multilevel moderate to severe spondylosis. Levoconvex curvature. Approved by: Donovan Durán M.D. on 07/02/2023 at 14:24
== END ==
PROVIDERS: PCP Family Medicine; Referring Provider Anesthesiology; Visit Provider Anesthesiology
DX: G89.29 Other chronic pain; M54.2 Cervicalgia; M54.59 Other low back pain; M47.812 Spondylosis without myelopathy or radiculopathy, cervical region; M43.8X6 Other specified deforming dorsopathies, lumbar region; M54.50 Low back pain, unspecified; M17.12 Unilateral primary osteoarthritis, left knee; M25.562 Pain in left knee; M47.816 Spondylosis without myelopathy or radiculopathy, lumbar region; Z68.20 Body mass index [BMI] 20.0-20.9, adult; M48.02 Spinal stenosis, cervical region
CPT/HCPCS: 72050; 72110; 99214

== ENCOUNTER → 2023-07-11 14:02 | Outpatient (CLI) | payer MEDICARE, SELFPAY ==
[2023-07-11 15:37] LABS: HEMOLYSIS < 15 (0-50); Iron 87 ug/dL (37-170)
[2023-07-11 15:39] LABS: Calcium 9.7 mg/dL (8.4-10.2)
[2023-07-11 15:48] LABS: Percent Iron Saturation 26 % (15-50); Total Iron Binding Capacity 338 ug/dL (265-497); Transferrin 280 mg/dL (206-381)
[2023-07-13 09:36] LABS: Ionized Calcium 4.8 mg/dL (4.5-5.6)
[2023-07-16 07:39] LABS: Parathyroid Hormone Int 25 pg/mL (15-65)
== END ==
PROVIDERS: PCP Family Medicine; Referring Provider Physician Assistant; Visit Provider Physician Assistant
DX: E83.119 Hemochromatosis, unspecified (principal); E21.3 Hyperparathyroidism, unspecified
CPT/HCPCS: 36415; 82310; 82330; 83540; 83550; 83970

== ENCOUNTER → 2023-08-14 09:06 | Outpatient (CLI) | payer MEDICARE, SELFPAY ==
--- NOTE | 2023-08-14 09:07 | DI.MG.S_ITS ---
BILATERAL DIGITAL SCREENING MAMMOGRAM 3D/2D WITH CAD: 08/14/2023 CLINICAL: Routine screening. Comparison is made to exams dated: 07/23/2022 mammogram, 06/20/2021 mammogram, and 03/25/2019 mammogram - [facility]. Both breasts are heterogeneously dense, which may obscure small masses (category c / 51-75% glandular tissue). Current study was also evaluated with a Computer Aided Detection (CAD) system. There are benign post operative findings in the right breast. No significant masses, calcifications, or other findings are seen in either breast. There has been no significant interval change. IMPRESSION: BENIGN There is no mammographic evidence of malignancy. A 1 year screening mammogram is recommended. Based on the Tyrer Cuzick model (a risk assessment model) the patient's lifetime risk is 9.5% and her 10 year risk is 5.3%. According to the ACR, ACS, and NCCN guidelines, an annual breast MRI exam along with mammogram is recommended if the patient's lifetime risk is 20% or greater. This exam was interpreted at Station ID: [id number]. NOTE: For mammograms, a report in lay terms will be sent to the patient. Approximately 15% of breast malignancies will not be visualized mammographically. In the management of a palpable breast mass, a negative mammogram must not discourage biopsy of a clinically suspicious lesion. Electronically Signed By: Binu bray/carmelina:08/14/2023 14:24:13 letter sent: Normal Exam ACR BI-RADS Category 2: Benign Finding(s) 3342F
== END ==
PROVIDERS: PCP Family Medicine; Referring Provider Physician Assistant; Visit Provider Physician Assistant
DX: Z12.31 Encounter for screening mammogram for malignant neoplasm of breast (principal); Z12.39 Encounter for other screening for malignant neoplasm of breast
CPT/HCPCS: 77063; 77067

== ENCOUNTER → 2023-10-12 15:45 | Outpatient (CLI) | payer MEDICARE, SELFPAY ==
--- NOTE | 2023-10-12 15:47 | DI.MRI.S_ITS ---
PROCEDURE: MR LUMBAR SPINE WO CON INDICATIONS: Scoliosis lumbar facet arthropathy TECHNIQUE: Noncontrast sagittal T1 spin echo and T2 fast echo, sagittal STIR, and T2 fast spin echo through the lumbar spine. In cases with scoliosis, additional coronal T2 fast spin echo may be performed. COMPARISON: None. FINDINGS: Image quality: Excellent. Alignment and Curvature: Moderate levocurvature centered at L3. Trace retrolisthesis of L1 on L2. 3 mm retrolisthesis of L2 on L3. Bone Marrow: Marrow is of normal overall signal. No acute vertebral body compression fractures. Spinal Cord: Conus medullaris terminates at the L1-L2 level. Visualized cord demonstrates normal signal and size. Paraspinous Soft Tissues: No paravertebral masses. T12-L1: Facet hypertrophy. No canal stenosis or foraminal stenosis. L1-L2: Mild chronic disc height loss. Disc bulge. Facet hypertrophy. Gixr-rq-okeyxini canal stenosis. Moderate right foraminal stenosis. L2-L3: Mild disc height loss. Trace retrolisthesis L2 on L3. Disc bulge. Facet and ligament hypertrophy. Moderate canal stenosis. Moderate to severe stenosis of the medial aspect of the right foramen with likely impingement on the exiting right L2 nerve root. L3-L4: Severe chronic disc height loss. Posterior disc post osteophyte. Facet and ligament hypertrophy. Moderate canal stenosis. Moderate right foraminal narrowing with mild flattening deformity on the exiting right L3 nerve root. Mild left foraminal narrowing. L4-L5: Disc bulge. Prominent facet hypertrophy. Mild central canal stenosis. Moderate to severe left lateral recess stenosis. Mild right foraminal narrowing. Moderate to severe left foraminal narrowing with probable mild impingement on the exiting left L4 nerve root. L5-S1: Severe chronic disc height loss. Disc bulge. Facet hypertrophy. Dmjo-zs-qsttlhms right foraminal narrowing. Severe left foraminal narrowing with left foraminal L5 nerve root impingement. IMPRESSION: 1. There is moderate levocurvature centered at L3. Additionally, there is multilevel underlying facet arthropathy. 2. Canal stenosis is mild to moderate at L1-L2, moderate at L2-L3, and moderate at L3-L4. At L4-L5, there is mild central canal stenosis and moderate to severe left lateral recess stenosis. 3. Multilevel foraminal narrowing as described above. Findings include moderate to severe right foraminal narrowing at L2-L3, moderate to severe left foraminal narrowing at L4-L5, and severe left foraminal narrowing at L5-S1. Dictated by: Louie Blanco M.D. on 10/14/2023 at 15:59 Approved by: Louie Blanco M.D. on 10/14/2023 at 16:13
== END ==
LOC: MRI 15:46
PROVIDERS: PCP Family Medicine; Referring Provider Physical Medicine & Rehabilitation; Visit Provider Physical Medicine & Rehabilitation
DX: M47.816 Spondylosis without myelopathy or radiculopathy, lumbar region (principal); M47.817 Spondylosis without myelopathy or radiculopathy, lumbosacral region; M41.9 Scoliosis, unspecified; M48.061 Spinal stenosis, lumbar region without neurogenic claudication; M48.07 Spinal stenosis, lumbosacral region
CPT/HCPCS: 72148

== ENCOUNTER → 2023-11-14 16:13 | Outpatient (CLI) | payer MEDICARE, SELFPAY ==
--- NOTE | 2023-11-14 16:14 | DI.MRI.S_ITS ---
PROCEDURE: MR CERVICAL SPINE WO CON INDICATIONS: Cervical spondylosis with radiculopathy TECHNIQUE: Noncontrast sagittal T1 spin echo and T2 fast spin echo, sagittal STIR, foraminal oblique sagittal T2 fast spin echo, and axial gradient echo or T2 fast spin echo through the cervical spine. COMPARISON: [facility], MR, C-SPINE WITHOUT CONTRAST, 12/29/2015, 14:25. FINDINGS: Image quality: Excellent. Alignment and Curvature: There is trace retrolisthesis of C2 on C3, C3-C4 on C5, C5 on C6, C6 on C7 and trace anterolisthesis of C7 on T1, T1 on T2. Bone Marrow: Marrow demonstrates normal overall signal. Mild reactive endplate changes are present at C3-4, C4-5, C5-6. Spinal Cord: Visualized spinal cord has normal size and signal. No cerebellar tonsillar herniation. Paraspinous Soft Tissues: No paravertebral masses. Prevertebral soft tissues are normal in thickness. Discs: Multilevel moderate to severe disc desiccation most severe C4-5 through C6-7. C2-C3: Mild disc bulge with effacement of the anterior thecal sac. Moderate to severe left and moderate right foraminal narrowing with uncovertebral arthropathy. Slight interval progression on the left. C3-C4: Mild disc bulge with less prominent appearance of posterior central protrusion. There is minimal to mild canal narrowing slightly progressive. Moderate to severe right and severe left foraminal narrowing progressive bilaterally. Uncovertebral hypertrophy is present. C4-C5: Mild disc bulge with minimal to mild spinal stenosis. Moderate to severe right and severe left foraminal narrowing, left greater than right, minimally progressive. Uncovertebral hypertrophy is present. C5-C6: Mild disc bulge with minimal canal narrowing. Severe bilateral foraminal narrowing with uncovertebral hypertrophy, slightly progressive on the left. C6-C7: Mild disc bulge without spinal stenosis. Moderate to severe bilateral foraminal narrowing with uncovertebral hypertrophy, relatively stable. C7-T1: No disc bulge, spinal stenosis or foraminal narrowing. IMPRESSION: Multilevel degenerative changes demonstrating areas of progression as above. Multilevel moderate to severe foraminal narrowing most notable at C3-4, C4-5, C5-6 secondary to uncovertebral arthropathy. Dictated by: Nicole Funez M.D. on 11/15/2023 at 9:34 Approved by: Nicole Funez M.D. on 11/15/2023 at 10:53
== END ==
LOC: MRI 16:13
PROVIDERS: PCP Family Medicine; Referring Provider Physical Medicine & Rehabilitation; Visit Provider Physical Medicine & Rehabilitation
DX: M47.22 Other spondylosis with radiculopathy, cervical region (principal); M48.02 Spinal stenosis, cervical region
CPT/HCPCS: 72141

== ENCOUNTER → 2023-12-20 09:04 | Outpatient (CLI) | payer MEDICARE, SELFPAY ==
[2023-12-20 10:32] LABS: Alanine Aminotransferase 20 IU/L (<35); Albumin 4.3 g/dL (3.5-5.0); Albumin Globulin Ratio 1.7 (1.0-2.8); Alkaline Phosphatase 71 U/L (38-126); Aspartate Aminotransferase 34 IU/L (14-36); BUN Creatinine Ratio 16.7 (6-22); Bilirubin Total 0.6 mg/dL (0.2-1.3); Blood Urea Nitrogen 13 mg/dL (7-17); Calcium 9.8 mg/dL (8.4-10.2); Carbon Dioxide 29 mmol/L (22-32); Chloride 102 mmol/L (98-107); Cholesterol 256 mg/dL (140-199); Estimated Glomerular Filt Rate > 60 mL/min (>60); Globulin 2.6 g/dL (1.7-4.1); Glucose 86 mg/dL (80-110); HDL Cholesterol 95 mg/dL (40-60); HEMOLYSIS < 15 (0-50); LDL Cholesterol Calculated 151 mg/dL (<100); Sodium 135 mmol/L (137-145); Total Protein 6.9 g/dL (6.3-8.2); Triglycerides 48 mg/dL (35-150)
[2023-12-20 10:37] LABS: High Sensitivity CRP - Cardiac 2.2 mg/L (1.0-3.0)
== END ==
PROVIDERS: PCP Family Medicine; Referring Provider Family Medicine; Visit Provider Family Medicine
DX: E78.5 Hyperlipidemia, unspecified (principal); Z00.00 Encounter for general adult medical examination without abnormal findings; G43.909 Migraine, unspecified, not intractable, without status migrainosus; M85.80 Other specified disorders of bone density and structure, unspecified site
CPT/HCPCS: 36415; 80053; 80061; 86140

== ENCOUNTER → 2024-01-04 09:52 | Outpatient (CLI) | payer MEDICARE, SELFPAY ==
[2024-01-09 09:06] LABS: Percent Free Testosterone 1.15 % (0.50-2.80); Testosterone Free 0.31 ng/dL (0.10-0.85); Testosterone Total 26.6 ng/dL (7.0-40.0)
== END ==
LOC: LAB 09:53
PROVIDERS: PCP Family Medicine; Referring Provider Family Medicine; Visit Provider Family Medicine
DX: F51.01 Primary insomnia (principal); R53.83 Other fatigue; E34.9 Endocrine disorder, unspecified; N95.9 Unspecified menopausal and perimenopausal disorder
CPT/HCPCS: 36415; 82670; 84144; 84402; 84403; 84999

== ENCOUNTER 2024-01-09 19:30 | Observation (INO) | payer MEDICARE, SELFPAY ==
[2024-01-09] VITALS (14 sets, daily range): BP systolic 124–143; BP diastolic 60–69; PULSE 41–73; RESP 11–24; TEMP 35.9–36.4; O2SAT 96–100; BMI 19.6
--- NOTE | 2024-01-09 19:37 | DI.CT.S_ITS ---
PROCEDURE: CT ABDOMEN PELVIS W CON INDICATIONS: pain hypotension TECHNIQUE: After the administration of intravenous contrast, axial sections acquired from the lung bases to the pubic symphysis. Coronal and sagittal reformats were performed. For radiation dose reduction, the following was used: automated exposure control, adjustment of mA and/or kV according to patient size. COMPARISON: None. FINDINGS: Image quality: Diagnostic. Lower Chest: No significant findings. ABDOMEN: Liver: No solid mass. Mild hepatic steatosis. Multiple scattered hepatic hypodensities incompletely characterized but likely cysts or hemangiomas. Gallbladder: No radiopaque gallstones or wall thickening. Biliary ducts: No biliary dilation. Pancreas: No ductal dilation. Spleen: Size is within normal limits. Adrenal Glands: No adrenal nodules. Kidneys and Ureters: No hydronephrosis. No solid mass. No complex renal cystic lesion which requires follow up. Stomach and Bowel: Marked amount of fecal material seen throughout the colon and rectum. There is also abnormal swirling of the mesenteric vessels with multiple loops of mildly dilated, fluid-filled small bowel and significant mesenteric edema. No pneumatosis visualized. Peritoneum: Small volume scattered ascites. No free air. Ventral Wall: No significant ventral hernia. Abdominal Nodes: No retroperitoneal or mesenteric adenopathy by size criteria. Vessels: Aorta and inferior vena cava are normal in size. PELVIS: Pelvic Organs: Unremarkable. Bladder: No bladder wall thickening, accounting for underdistention. Pelvic Nodes: No enlarged lymph nodes. Miscellaneous: No inguinal hernias are seen. Bones: No aggressive osseous abnormality. The visualized osseous structures appear intact without acute fracture or acute compression fractures. No suspicious osseous lesions. IMPRESSION: 1. Marked amount fecal material seen throughout the colon and rectum as well as numerous loops mildly distended fluid-filled small bowel with moderate mesenteric edema and moderate swirling appearance of the mesenteric vessels suspicious for internal hernia with possible volvulus. There is concern for possible vascular compromise. No pneumatosis or portal venous gas identified. Recommend further evaluation with surgical consultation. 2. Other chronic findings as above Findings were discussed with Dr. Oliveira at 2030 hrs. Dictated by: Iftikhar Luevano M.D. on 01/09/2024 at 20:14 Approved by: Iftikhar Luevano M.D. on 01/09/2024 at 20:31
--- NOTE | 2024-01-09 19:38 | DI.RAD.S_ITS ---
PROCEDURE: XR CHEST 1V INDICATIONS: chest pain TECHNIQUE: One view of the chest was acquired. COMPARISON: [facility], CR, XR CHEST 2V, 09/08/2021, 9:52. FINDINGS: Surgical changes and devices: None. Lungs and pleura: Lungs are clear. No pleural effusions or pneumothorax. Mediastinum: Mediastinal contours appear normal. Heart size is normal. Bones and chest wall: No suspicious bony lesions. Overlying soft tissues appear unremarkable. IMPRESSION: No acute cardiopulmonary abnormality is seen. Dictated by: Iftikhar Luevano M.D. on 01/09/2024 at 20:34 Approved by: Iftikhar Luevano M.D. on 01/09/2024 at 20:35
--- NOTE | 2024-01-09 19:42 | ED_ITS ---
HPI - Abdominal Pain General Chief Complaint: Abdominal Pain Stated Complaint: abd pain, weakness Time Seen by Provider: 01/09/24 19:37 Source: EMS Mode of arrival: EMS History of Present Illness HPI narrative: Patient 68-year-old female history of chronic back pain, osteopenia, depression presenting today with abdominal pain vomiting. She reports she has had ?turbulent abdomen? all day. She has had excessive gas. She reports that she has been able to eat she ate dinner and then quickly vomited afterwards. No dark or bloody stool no diarrhea she did not vomit any blood. EMS arrived and noted she was very hypotensive with a systolic in the 90s. Her blood pressure has come up to systolic of 124 she received a total of 100 mcg of fentanyl and Zofran along IV fluids. reports that she briefly passed out no seizure activity she has not on anticoagulation. She is noted to be very bradycardic heart rate in the 30s to 40s she not on any AV sonia jacy medications he denies any chest pain palpitations dizziness. She has pain all over her abdomen. She appears pale Related Data Home Medications Medication Instructions Recorded Confirmed supplements - see scans 12/03/18 1 tab PO PRN PRN Pain (Scale Score 12/03/18 12/17/23 7-10) Glucosamine Chondroitin MaxStr 2 cap PO DAILY 10/03/21 12/17/23 calcium carbonate 600 mg-vitamin 1 tab PO DAILY 10/03/21 12/17/23 D3 5 mcg (200 unit) tablet lactase 1 tab PO PRN PRN With dairy 10/03/21 12/17/23 Previous Rx's Medication Instructions Recorded [id number] See Rx Instructions .Route 06/18/22 50 mg-325 mg-40 mg tablet .COMPLEX #30 tabs gabapentin 100 mg capsule 100 mg PO TID PRN pain #30 caps 01/14/23 methocarbamol 750 mg tablet 750 mg PO QID #60 tabs 01/14/23 tretinoin 0.1 % topical cream 1 applic topical BEDTIME #20 grams 04/25/23 trazodone 100 mg tablet See Rx Instructions .Route 07/16/23 .COMPLEX #60 tabs meloxicam 15 mg tablet 15 mg PO DAILY #30 tabs 10/07/23 sumatriptan succinate 100 mg tablet 100 mg PO ONCE #12 tabs 12/19/23 Allergies Allergy/AdvReac Type Severity Reaction Status Date / Time adhesive tape AdvReac Severe Blister Verified 01/09/24 19:38 Patient History Medical History Depression Cervical radiculopathy Osteoarthritis of hands, bilateral Facet arthropathy, lumbar Degenerative joint disease of both hips Osteoarthritis of left knee Left knee pain Lumbar spondylosis Depression Skin problem Osteoarthritis Migraines Back problem Scoliosis Osteopenia Surgical History History of breast biopsy (~1989) Status post wrist surgery (~2011) Family History Father Skin cancer Heart disease Hypertension Mother Cancer Brother Hyperlipidemia Sister Skin cancer Grandfather Cancer Grandmother Cancer Grandfather Stroke Social History marital status: number of children: 0 household members: spouse lives independently: Yes education level: master's degree occupational status: other Smoking Status: Never smoker alcohol intake: current substance use type: does not use Smoking Status: Never smoker alcohol intake frequency: a few times a week Substance Use Type: does not use and painkillers Exam Initial Vital Signs Initial Vital Signs: Vital Signs Temperature 96.6 F L 01/09/24 19:36 Pulse Rate 41 L 01/09/24 19:36 Respiratory Rate 12 01/09/24 19:36 Blood Pressure 124/60 01/09/24 19:36 Pulse Oximetry 100 01/09/24 19:36 Oxygen Delivery Method Room Air 01/09/24 19:36 GENERAL: Pale alert 68-year-old female and in [no acute] distress. HEENT: Head atraumatic,EOMI, pupils reactive, face symmetric, [moist] mucous membranes CARDIOVASCULAR: Regular rate and rhythm without murmurs, rubs or gallops. RESPIRATORY: Breath sounds equal bilaterally, no wheezes rales or rhonchi. ABDOMEN: Soft, nontender. Normoactive bowel sounds all 4 quadrants. No guarding or rebound. : No CVA tenderness EXTREMITIES: Normal range of motion, no clubbing or edema. Neurovascularly intact NEUROLOGICAL: Alert and oriented x4.Normal gait and speech. Cranial nerves II through XII grossly intact. SKIN: Warm, dry, no laceration, no petechiae, no rashes or lesions. Course Orders Ordered: ED Orders 01/09/24 19:20 Complete Blood Count AUTO DIFF Stat Comprehensive Metabolic Panel Stat Lactate (Lactic Acid) Stat Lipase Stat MAG [Magnesium] Stat PTT Partial Thromboplastin Fadi Stat Procalcitonin Stat Prothrombin Time INR Stat Troponin & CK Cardiac Panel Stat 01/09/24 19:37 CT abdomen pelvis w con Stat 01/09/24 19:38 XR chest 1V Stat 01/09/24 19:48 EKG-12 Lead Stat 01/10/24 05:00 Complete Blood Count AUTO DIFF DAILY Lactate (Lactic Acid) Routine 01/10/24 17:00 Basic Metabolic Panel DAILY Acetaminophen (Acetaminophen 325 Mg Tablet) 650 mg PO Q6H PRN PRN Reason: Fever/Mild Pain (1-3) Famotidine (Famotidine 20 Mg/2 Ml Vial) 20 mg IV BID [facility] Last Admin: 01/09/24 22:24 Dose: 20 mg Documented By: PAGE Gabapentin (Gabapentin 100 Mg Capsule) 100 mg PO TID [facility] Last Admin: 01/10/24 00:01 Dose: Not Given Documented By: LURDES Hydromorphone HCl (Hydromorphone 0.5 Mg Inj) 0.5 mg IV Q2H PRN PRN Reason: Pain, Severe (7-10) Lactated Ringer's (Lactated Ringers) 1,000 mls @ 100 mls/hr IV CONT [facility] Last Admin: 01/09/24 22:28 Dose: 100 mls/hr Documented By: PAGE Meloxicam (Meloxicam 7.5 Mg Tablet) 15 mg PO DAILY [facility] Methocarbamol (Methocarbamol 500 Mg Tablet) 750 mg PO QID [facility] Naloxone HCl (Naloxone 0.4 Mg/Ml Vial) 0.2 mg IV Q2MIN PRN PRN Reason: Opiate Reversal Sodium Chloride (Sodium Chloride 0.9% Flush) 10 ml IV BID [facility] Sodium Chloride (Sodium Chloride 0.9% Flush) 10 ml IV PRN PRN PRN Reason: Flush Discontinued Medications Atropine Sulfate (Atropine 1 Mg/10 Ml Syringe) 0.5 mg IV NOW ONE Stop: 01/09/24 19:43 Last Admin: 01/10/24 00:00 Dose: Not Given Documented By: LURDES Sodium Chloride (Normal Saline 0.9%) 1,000 mls @ 1,000 mls/hr IV CONT [facility] Last Admin: 01/10/24 00:01 Dose: Not Given Documented By: LM Vital Signs Vital signs: Vital Signs - 8 hr 01/09/24 19:36 01/09/24 19:36 01/09/24 20:01 Temperature 96.6 F L Pulse Rate 41 L 41 L 48 L Respiratory Rate 12 12 13 Blood Pressure 124/60 Pulse Oximetry 100 99 100 Oxygen Delivery Method Room Air 01/09/24 20:30 01/09/24 20:40 01/09/24 20:40 Temperature Pulse Rate 73 Respiratory Rate 23 24 Blood Pressure 139/66 Pulse Oximetry 98 Oxygen Delivery Method 01/09/24 20:45 01/09/24 20:45 01/09/24 21:00 Temperature Pulse Rate 52 L 51 L Respiratory Rate 19 Blood Pressure 141/65 H Pulse Oximetry 98 96 Oxygen Delivery Method 01/09/24 21:00 01/09/24 21:15 01/09/24 21:15 Temperature Pulse Rate 59 L Respiratory Rate Blood Pressure 135/65 128/65 Pulse Oximetry 96 Oxygen Delivery Method 01/09/24 21:26 01/09/24 21:26 01/09/24 21:30 Temperature Pulse Rate 62 56 L Respiratory Rate 21 11 L Blood Pressure 137/65 Pulse Oximetry 99 98 Oxygen Delivery Method 01/09/24 21:30 01/09/24 21:45 01/09/24 21:45 Temperature Pulse Rate 57 L Respiratory Rate 12 Blood Pressure 143/67 H 125/66 Pulse Oximetry 99 Oxygen Delivery Method MDM - Abdominal Pain Lab Data 01/09/24 19:20 01/09/24 19:20 Labs: Lab Results 01/09/24 Range/Units 19:20 WBC 9.5 (4.5-11.0) X10^3/uL RBC 4.33 (4.0-5.2) X10^6/uL Hgb 12.6 (12.0-16.0) g/dL Hct 38.2 (36-46) % MCV 88.2 (80-100) fL MCH 29.1 (26-34) PG MCHC 32.9 (30-36) % RDW 14.3 (11.6-14.8) % Plt Count 243 (150-400) X10^3/uL Neut % (Auto) 39.5 L (50-75) % Lymph % (Auto) 52.6 H (25-40) % [place] % (Auto) 5.6 (3-14) % Eos % (Auto) 1.5 L (2-4) % Baso % (Auto) 0.8 (0-2) % Neut # (Auto) 3700 (8114-9441) /uL Lymph # (Auto) 5000 H (7371-7294) /uL [place] # (Auto) 500 (0-900) /uL Eos # (Auto) 100 (0-450) /uL Baso # (Auto) 100 (0-100) /uL PT 11.7 (9.4-12.5) SECONDS INR 1.0 (0.9-1.3) APTT 26 (25.1-36.5) SECONDS Sodium 136 L (137-145) mmol/L Potassium 3.2 L (3.4-5.1) mmol/L Chloride 102 (98-107) mmol/L Carbon Dioxide 27 (22-32) mmol/L BUN 12 (7-17) mg/dL Creatinine 0.77 (0.52-1.04) mg/dL Estimated GFR > 60 (>60) mL/min BUN/Creatinine Ratio 15.6 (6-22) Glucose 126 H (80-110) mg/dL Lactate 1.5 (0.7-2.1) mmol/L Calcium 10.3 H (8.4-10.2) mg/dL Magnesium 2.2 (1.6-2.3) mg/dL Total Bilirubin 0.6 (0.2-1.3) mg/dL AST 42 H (14-36) IU/L ALT 24 (<35) IU/L Alkaline Phosphatase 74 (38-126) U/L Total Creatine Kinase 171 H (30-135) U/L Troponin I < 0.012 (0.01-0.034) ng/mL Total Protein 7.1 (6.3-8.2) g/dL Albumin 4.5 (3.5-5.0) g/dL Globulin 2.6 (1.7-4.1) g/dL Albumin/Globulin Ratio 1.7 (1.0-2.8) Lipase 163 (23-300) U/L Procalcitonin < 0.03 (<0.5) ng/mL Imaging Data CT scan - abdomen/pelvis: Radiologist's Impression: PROCEDURE: CT ABDOMEN PELVIS W CON INDICATIONS: pain hypotension TECHNIQUE: After the administration of intravenous contrast, axial sections acquired from the lung bases to the pubic symphysis. Coronal and sagittal reformats were performed. For radiation dose reduction, the following was used: automated exposure control, adjustment of mA and/or kV according to patient size. COMPARISON: None. FINDINGS: Image quality: Diagnostic. Lower Chest: No significant findings. ABDOMEN: Liver: No solid mass. Mild hepatic steatosis. Multiple scattered hepatic hypodensities incompletely characterized but likely cysts or hemangiomas. Gallbladder: No radiopaque gallstones or wall thickening. Biliary ducts: No biliary dilation. Pancreas: No ductal dilation. Spleen: Size is within normal limits. Adrenal Glands: No adrenal nodules. Kidneys and Ureters: No hydronephrosis. No solid mass. No complex renal cystic lesion which requires follow up. Stomach and Bowel: Marked amount of fecal material seen throughout the colon and rectum. There is also abnormal swirling of the mesenteric vessels with multiple loops of mildly dilated, fluid-filled small bowel and significant mesenteric edema. No pneumatosis visualized. Peritoneum: Small volume scattered ascites. No free air. Ventral Wall: No significant ventral hernia. Abdominal Nodes: No retroperitoneal or mesenteric adenopathy by size criteria. Vessels: Aorta and inferior vena cava are normal in size. PELVIS: Pelvic Organs: Unremarkable. Bladder: No bladder wall thickening, accounting for underdistention. Pelvic Nodes: No enlarged lymph nodes. Miscellaneous: No inguinal hernias are seen. Bones: No aggressive osseous abnormality. The visualized osseous structures appear intact without acute fracture or acute compression fractures. No suspicious osseous lesions. IMPRESSION: 1. Marked amount fecal material seen throughout the colon and rectum as well as numerous loops mildly distended fluid-filled small bowel with moderate mesenteric edema and moderate swirling appearance of the mesenteric vessels suspicious for internal hernia with possible volvulus. There is concern for possible vascular compromise. No pneumatosis or portal venous gas identified. Recommend further evaluation with surgical consultation. 2. Other chronic findings as above Findings were discussed with Dr. Oliveira at 2030 hrs. Dictated by: Iftikhar Luevano M.D. on 01/09/2024 at 20:14 Chest x-ray: Radiologist's Impression: PROCEDURE: XR CHEST 1V INDICATIONS: chest pain TECHNIQUE: One view of the chest was acquired. COMPARISON: [facility], CR, XR CHEST 2V, 09/08/2021, 9:52. FINDINGS: Surgical changes and devices: None. Lungs and pleura: Lungs are clear. No pleural effusions or pneumothorax. Mediastinum: Mediastinal contours appear normal. Heart size is normal. Bones and chest wall: No suspicious bony lesions. Overlying soft tissues appear unremarkable. IMPRESSION: No acute cardiopulmonary abnormality is seen. Dictated by: Iftikhar Luevano M.D. on 01/09/2024 at 20:34 ECG Data Attestation: I personally reviewed and interpreted this ECG as follows: Interpretation: Sinus bradycardia rate 42 MI 160 QRS [address] changes no dropped beats no evidence of AV sonia block MDM Narrative Medical decision making narrative: MDM CC: Abdominal pain Complicating co-morbidities: Depression Corroborating data: Data collected from: [ ] Medical records reviewed: Yes Differential considered: [ ] Exam documented above, pertinent findings include: Appears pale no mottling mild abdominal pain bradycardia with heart rate as low as 35 with PVCs Lab Test results independently reviewed as above. Pertinent findings: WBC 9.5, hemoglobin 12.6, hematocrit 38.2, platelets 243, INR 1.0 PTT 26, sodium 136 potassium 3.2 chloride 102 carbon dioxide 27 BUN 12 creatinine 0.7, glucose 126, lactate 1.5, bilirubin 0.6 AST 42 ALT 24 alk-phos 74 troponin less than 0.012, procalcitonin less than 0.03 lipase 163 Independently reviewed EKG as above Imaging studies independently reviewed: CT concerning for internal herni, moderate mesenteric edema and moderate swirling appearance of the mesenteric vessels possible volvulus also possible vascular compromise Consultations: 20:55 Dr. Carrington updated patient's symptoms test results will look at CT and call back. 21:[address] Carrington she sees lots of constipation agrees to admit for observation Treatments: IV fluids atropine was ordered but never needed Re-evaluations: Blood pressure heart rate have improved and stabilized abdomen remains soft and nontender no further nausea or vomiting Discussion: Patient is 68-year-old female presents today with a near syncopal episode. It sounds as though she did pass out briefly with some shaking but had no postictal. She has had episodes like this before seems to be a vasovagal reaction. She has had ongoing swirling sign possible volvulus versus internal hernia. Patient reports she has chronic constipation which is also reported in the CT. However with near syncopal episode abnormal vitals and swirling sign with mesenteric edema unclear if this is caused by chronic constipation. Surgery was consulted due to initial abnormal vitals which have now corrected agrees with an observation status. Long discussion with patient and about recommendations they are agreeable to stay. She initially was very bradycardic I suspect this might be a vasovagal type reaction she has no AV sonia block she was having frequent PVCs but that has also resolved. She also shaking uncontrollably but never developed a fever. Discharge Plan Departure Patient Disposition: Admitted as Observation Clinical Impression: Hernia, internal, Bradycardia, Acute hypotension Admit Date/Time: 01/09/24 21:46 Admit Provider: Lucila Carrington
[2024-01-09 19:49] LABS: Add Manual Diff / Slide Review NO; Basophils Absolute Auto 100 /uL (0-100); Basophils Percent Auto 0.8 % (0-2); Eosinophils Absolute Auto 100 /uL (0-450); Eosinophils Percent Auto 1.5 % (2-4); Hematocrit 38.2 % (36-46); Hemoglobin 12.6 g/dL (12.0-16.0); Lymphocytes Absolute Auto 5000 /uL (1100-4500); Lymphocytes Percent Auto 52.6 % (25-40); Mean Corpuscular HGB Conc 32.9 % (30-36); Mean Corpuscular Hemoglobin 29.1 PG (26-34); Mean Corpuscular Volume 88.2 fL (80-100); Monocytes Absolute Auto 500 /uL (0-900); Monocytes Percent Auto 5.6 % (3-14); Neutrophils Absolute Auto 3700 /uL (1500-7000); Neutrophils Percent Auto 39.5 % (50-75); Platelet Count 243 X10^3/uL (150-400); Red Blood Cell Count 4.33 X10^6/uL (4.0-5.2); Red Cell Distribution Width 14.3 % (11.6-14.8); White Blood Cell Count 9.5 X10^3/uL (4.5-11.0)
[2024-01-09 19:51] LABS: Prothrombin Time 11.7 SECONDS (9.4-12.5)
[2024-01-09 19:53] LABS: PTT Partial Thromboplastin Tim 26 SECONDS (25.1-36.5)
[2024-01-09 19:56] LABS: Lactate (Lactic Acid) 1.5 mmol/L (0.7-2.1)
[2024-01-09 19:57] LABS: Alanine Aminotransferase 24 IU/L (<35); Albumin 4.5 g/dL (3.5-5.0); Albumin Globulin Ratio 1.7 (1.0-2.8); Alkaline Phosphatase 74 U/L (38-126); Aspartate Aminotransferase 42 IU/L (14-36); BUN Creatinine Ratio 15.6 (6-22); Bilirubin Total 0.6 mg/dL (0.2-1.3); Blood Urea Nitrogen 12 mg/dL (7-17); Calcium 10.3 mg/dL (8.4-10.2); Carbon Dioxide 27 mmol/L (22-32); Chloride 102 mmol/L (98-107); Creatine Kinase 171 U/L (30-135); Estimated Glomerular Filt Rate > 60 mL/min (>60); Globulin 2.6 g/dL (1.7-4.1); Glucose 126 mg/dL (80-110); HEMOLYSIS < 15 (0-50); Lipase 163 U/L (23-300); Potassium 3.2 mmol/L (3.4-5.1); Sodium 136 mmol/L (137-145); Total Protein 7.1 g/dL (6.3-8.2)
[2024-01-09 20:09] LABS: Troponin I < 0.012 ng/mL (0.01-0.034)
[2024-01-09 20:14] LABS: Procalcitonin < 0.03 ng/mL (<0.5)
[2024-01-09 20:16] LABS: Magnesium 2.2 mg/dL (1.6-2.3)
--- NOTE | 2024-01-09 21:24 | PC.NURSE ---
Pt ambulatory to the restroom and back to her room w/o incident. Pt states that she feels better.
--- NOTE | 2024-01-09 21:51 | PM.CALLCOV.1 ---
Call Coverage Note Note Date of Patient Contact: 01/09/24 Narrative of Care Provided: N/V, abdominal pain presenting hypotensive and bradycardic Normal lactic acid and WBC CT scan abdomen shows severe constipation, mesenteric sworling of SB of unknown importance given the normal lactic acid and bradycardia. Admit with cardiac monitoring, IVF, NPO and repeat labs. Consult medicine to rule out primary cardiac issues.
[2024-01-09] MEDS: SODIUM CHLORIDE 0.9% FLUSH 10 ML IV (21:55)
[2024-01-09] MEDS: FAMOTIDINE 20 MG/2 ML VIAL IV (22:24)
[2024-01-09] MEDS: LACTATED RINGERS 1,000 ML 100 ML IV (22:28)
--- NOTE | 2024-01-09 22:38 | PC.NURSE ---
Report given to Caitlin RN room 206
[2024-01-10] VITALS (7 sets, daily range): BP systolic 121–156; BP diastolic 66–90; PULSE 50–59; RESP 16–18; TEMP 36.1–36.6; O2SAT 95–99
[2024-01-10 05:27] LABS: Lactate (Lactic Acid) 0.7 mmol/L (0.7-2.1)
[2024-01-10 05:29] LABS: Add Manual Diff / Slide Review NO; Basophils Absolute Auto 100 /uL (0-100); Basophils Percent Auto 0.8 % (0-2); Eosinophils Absolute Auto 0 /uL (0-450); Eosinophils Percent Auto 0.6 % (2-4); Hematocrit 34.8 % (36-46); Hemoglobin 11.6 g/dL (12.0-16.0); Lymphocytes Absolute Auto 2600 /uL (1100-4500); Lymphocytes Percent Auto 32.9 % (25-40); Mean Corpuscular HGB Conc 33.4 % (30-36); Mean Corpuscular Hemoglobin 29.2 PG (26-34); Mean Corpuscular Volume 87.4 fL (80-100); Monocytes Absolute Auto 500 /uL (0-900); Monocytes Percent Auto 5.7 % (3-14); Neutrophils Absolute Auto 4800 /uL (1500-7000); Platelet Count 183 X10^3/uL (150-400); Red Blood Cell Count 3.98 X10^6/uL (4.0-5.2); Red Cell Distribution Width 14.1 % (11.6-14.8)
--- NOTE | 2024-01-10 12:26 | PM.HP.1 ---
History of Present Illness History of Present Illness Date Patient Seen: 01/10/24 Time Patient Seen: 07:30 Chief complaint: abd pain, weakness Narrative: 68-year-old woman who presented to [facility] January 09, 2024 with complaint of abdominal pain and emesis. At admission vital signs and laboratory studies within normal limits. A CT abdomen pelvis was performed which demonstrated large amount of stool within the colon, dilated fluid-filled loops of small bowel with mesenteric edema and swirling of the mesenteric vessels. She has never had prior abdominal surgery. Since admission she is markedly improved. She is hungry passing flatus nausea and abdominal pain resolved. [facility] Medical History Depression Cervical radiculopathy Osteoarthritis of hands, bilateral Facet arthropathy, lumbar Degenerative joint disease of both hips Osteoarthritis of left knee Left knee pain Lumbar spondylosis Depression Skin problem Osteoarthritis Migraines Back problem Scoliosis Osteopenia Surgical History History of breast biopsy (~1989) Status post wrist surgery (~2011) Family History Father Skin cancer Heart disease Hypertension Mother Cancer Brother Hyperlipidemia Sister Skin cancer Grandfather Cancer Grandmother Cancer Grandfather Stroke Social History marital status: number of children: 0 household members: spouse lives independently: Yes education level: master's degree occupational status: other Smoking Status: Never smoker alcohol intake: current substance use type: does not use Meds Home Medications and Allergies Home Medications Medication Instructions Recorded Confirmed Type supplements - see scans 12/03/18 1 tab PO PRN PRN Pain (Scale Score 12/03/18 01/10/24 History 7-10) Glucosamine Chondroitin MaxStr 2 cap PO DAILY 10/03/21 12/17/23 History calcium carbonate 600 mg-vitamin 1 tab PO DAILY 10/03/21 12/17/23 History D3 5 mcg (200 unit) tablet lactase 1 tab PO PRN PRN With dairy 10/03/21 12/17/23 History [id number] See Rx Instructions .Route 06/18/22 01/10/24 Rx 50 mg-325 mg-40 mg tablet .COMPLEX #30 tabs methocarbamol 750 mg tablet 750 mg PO QID #60 tabs 01/14/23 01/10/24 Rx tretinoin 0.1 % topical cream 1 applic topical BEDTIME #20 grams 04/25/23 12/17/23 Rx trazodone 100 mg tablet See Rx Instructions .Route 07/16/23 01/10/24 Rx .COMPLEX #60 tabs meloxicam 15 mg tablet 15 mg PO DAILY #30 tabs 10/07/23 12/17/23 Rx sumatriptan succinate 100 mg tablet 100 mg PO ONCE #12 tabs 12/19/23 01/10/24 Rx Allergies Allergy/AdvReac Type Severity Reaction Status Date / Time adhesive tape AdvReac Severe Blister Verified 01/09/24 19:38 Exam Vital Signs (past 8 hours): - 01/10/24 05:00 01/10/24 06:00 01/10/24 09:00 Temperature 97.8 F 97.7 F Pulse Rate 54 L 58 L 53 L Respiratory Rate 18 16 Blood Pressure 121/66 135/90 Pulse Oximetry 97 97 99 Oxygen Flow Rate 0 01/10/24 12:00 Temperature 97.0 F L Pulse Rate 53 L Respiratory Rate 16 Blood Pressure 156/75 H Pulse Oximetry 98 Oxygen Flow Rate 0 Oxygen Delivery Method Room Air Oxygen Flow Rate 0 Narrative Exam Narrative: GENERAL: A well nourished, well developed adult, resting comfortably, in no acute distress. HEENT: Normocephalic, atraumatic. No scleral icterus CHEST: Rising symmetrically. No audible wheezes CARDIOVASCULAR: Warm and well perfused. Regular rate ABDOMEN: Soft, mild distention no peritonitis EXTREMITIES: Normal tone and without edema. NEUROLOGIC: Moving all extremities spontaneously. No gross motor deficits. Objective Labs 01/10/24 04:55 01/09/24 19:20 Labs: Laboratory Results - last 24 hr 01/09/24 01/10/24 19:20 04:55 WBC 9.5 8.0 RBC 4.33 3.98 L Hgb 12.6 11.6 L Hct 38.2 34.8 L MCV 88.2 87.4 MCH 29.1 29.2 MCHC 32.9 33.4 RDW 14.3 14.1 Plt Count 243 183 Neut % (Auto) 39.5 L 60.0 D Lymph % (Auto) 52.6 H 32.9 Sherman % (Auto) 5.6 5.7 Eos % (Auto) 1.5 L 0.6 L Baso % (Auto) 0.8 0.8 Neut # (Auto) 3700 4800 Lymph # (Auto) 5000 H 2600 Sherman # (Auto) 500 500 Eos # (Auto) 100 0 Baso # (Auto) 100 100 PT 11.7 INR 1.0 APTT 26 Sodium 136 L Potassium 3.2 L Chloride 102 Carbon Dioxide 27 BUN 12 Creatinine 0.77 Estimated GFR > 60 BUN/Creatinine Ratio 15.6 Glucose 126 H Lactate 1.5 0.7 Calcium 10.3 H Magnesium 2.2 Total Bilirubin 0.6 AST 42 H ALT 24 Alkaline Phosphatase 74 Total Creatine Kinase 171 H Troponin I < 0.012 Total Protein 7.1 Albumin 4.5 Globulin 2.6 Albumin/Globulin Ratio 1.7 Lipase 163 Procalcitonin < 0.03 Assessment & Plan Assessment and plan (1) Abdominal pain: Qualifiers: Abdominal location: unspecified location Qualified Code(s): R10.9 - Unspecified abdominal pain Status: Acute Assessment & Plan narrative: 68-year-old woman with no past surgical history admitted to the hospital with acute abdominal pain for concern of possible small bowel obstruction and internal hernia. CT abdomen pelvis reviewed demonstrates constipation and some dilated loops of small bowel however no obstruction is appreciated. Symptoms have spontaneously resolved there is no evidence of an obstruction at this time. We will proceed with diet as tolerated. Quality VTE Deep Vein Thrombosis/Pulmonary Embolism Present on Admission: No
--- NOTE | 2024-01-10 13:08 | PC.NURSE ---
Patient is A&OX4, she denies abdominal pain or N/V. She is independent in the room VSS, afebrile on RA. She is evaluated by MD Amaral at bedside and patient eager to discharge home. She is started on clear liquids and advances to fulls then a regular diet. MD returns after lunch patient tolerating General diet well and she is cleared for discharge home today with her . She verbalizes plan to return to ED if symptoms worsen. RN escorted patient to private vehicle with all of her belongings for discharge home with her today at 1253pm
--- NOTE | 2024-01-10 13:40 | CM.DANOTE ---
Initial DCP Assessment Visit Note Reviewed EMR and team rounds for pt's medical status and updates. Met with pt/spouse in the room to introduce self and role, pt was found to be dressed in anticipation of home d/c after she has her lunch. She lives indpendently at baseline with her spouse in their own home in [place]. Her spouse will transport her home. Payor: [facility] Attending: Dr. Carrington Pt is a 68 year-old F who was brought to the ED via EMS last evening after she experienced sudden onset abdominal pain, vomiting, and an episode of sycope after eating. EMS found her to be hypotensive, she was given pain meds/Zofran and IV fluids in transit, appeared pale in appearance once she arrived at the ED. CT abd/pelvis was concerning for possible internal hernia and volvulus. She was made NPO and Surgery was consulted. During her course, she did not require any surgical intervention. Today Dr. Amaral reviewed and discharged pt as she was back to baseline and medically stable. No further DCP needs were identified during this hospital stay. Discharge Planning/Care Management Advanced directive, confirm from FAMILY Start: 01/09/24 23:20 Freq: Q24H Status: Discharge Protocol: Document 01/09/24 23:20 LM (Rec: 01/10/24 05:03 LM [id number]) Advance Directive, confirm on record Time 05:03 Person contacted Patients spouse Copy received No Advanced directive available on record No CM Discharge Assessment Start: 01/10/24 13:19 Freq: Status: Active Protocol: Document 01/10/24 13:19 DPL (Rec: 01/10/24 13:21 DPL [id number]) Discharge Planning Assessment Assigned Wellness Instructor KAREEM Davies Advance Directives? Yes Advance Directives on File No History Provided By Patient,Significant Other, Medical Record Has Patient been admitted in last 30 No days? Prior Living Arrangements House Household Members spouse Type of transporation used prior to Drives own vehicle admit Independent with ADL's Yes Is patient alert and oriented? Yes Comment N/A Caregiver for Another No Comment No identified d/c needs identified at this time. Barriers to Discharge No Discharge Plan Home Transportation Arrangement Spouse Referrals Initiated None needed Whiteboard Updated in Patient Room with Yes name and ext. # of Wellness Instructor Review Status In Process Please Provide Date Initial DC 01/10/24 Assessment Was Performed Document 01/10/24 13:40 DPL (Rec: 01/10/24 13:40 DPL [id number]) Discharge Planning Assessment Assigned Wellness Instructor KAREEM Davies Advance Directives? Yes Advance Directives on File No History Provided By Patient,Significant Other, Medical Record Has Patient been admitted in last 30 No days? Prior Living Arrangements House Household Members spouse Type of transporation used prior to Drives own vehicle admit Independent with ADL's Yes Is patient alert and oriented? Yes Comment N/A Caregiver for Another No Comment No identified d/c needs identified at this time. Barriers to Discharge No Discharge Plan Home Transportation Arrangement Spouse Referrals Initiated None needed Whiteboard Updated in Patient Room with Yes name and ext. # of Wellness Instructor Review Status In Process Please Provide Date Initial DC 01/10/24 Assessment Was Performed
== END 2024-01-10 12:53 | disposition home or self-care (01) ==
LOC: ED 21:40 → AC 21:47
PROVIDERS: Admitting Provider Surgery; Emergency Provider Emergency Medicine; PCP Family Medicine; Referring Provider Emergency Medicine; Visit Provider Surgery
DX: R10.9 Unspecified abdominal pain (principal); R11.10 Vomiting, unspecified; R55 Syncope and collapse; R00.1 Bradycardia, unspecified
CPT/HCPCS: 36415; 71045; 74177; 80053; 82550; 83605; 83690; 83735; 84145; 84484; 85025; 85610; 85730; 93005; 96360; 96361; 99283; G0378; Q9967

== ENCOUNTER → 2024-03-02 09:12 | Outpatient (CLI) | payer MEDICARE, SELFPAY ==
[2024-01-17 09:25] VITALS: BMI 19.6
[2024-03-02 10:54] LABS: Vitamin D 25 Hydroxy (D3) 40.9 ng/mL (30.0-100.0)
[2024-03-02 11:29] LABS: Vitamin B12 367 pg/mL (239-931)
== END ==
PROVIDERS: PCP Family Medicine; Referring Provider Family Medicine; Visit Provider Family Medicine
DX: F51.01 Primary insomnia (principal); R40.0 Somnolence
CPT/HCPCS: 36415; 82306; 82607

== ENCOUNTER → 2024-04-16 13:41 | Outpatient (CLI) | payer MEDICARE, SELFPAY ==
[2024-01-17 09:25] VITALS: BMI 19.6
[2024-04-16 15:23] LABS: Add Manual Diff / Slide Review NO; Basophils Absolute Auto 100 /uL (0-100); Basophils Percent Auto 0.8 % (0-2); Eosinophils Absolute Auto 200 /uL (0-450); Eosinophils Percent Auto 2.7 % (2-4); Hematocrit 36.2 % (36-46); Hemoglobin 12.1 g/dL (12.0-16.0); Lymphocytes Absolute Auto 2300 /uL (1100-4500); Lymphocytes Percent Auto 34.4 % (25-40); Mean Corpuscular HGB Conc 33.5 % (30-36); Mean Corpuscular Hemoglobin 29.8 PG (26-34); Mean Corpuscular Volume 88.9 fL (80-100); Monocytes Absolute Auto 400 /uL (0-900); Monocytes Percent Auto 5.7 % (3-14); Neutrophils Absolute Auto 3800 /uL (1500-7000); Neutrophils Percent Auto 56.4 % (50-75); Platelet Count 203 X10^3/uL (150-400); Red Blood Cell Count 4.08 X10^6/uL (4.0-5.2); Red Cell Distribution Width 14.3 % (11.6-14.8); White Blood Cell Count 6.7 X10^3/uL (4.5-11.0)
[2024-04-16 15:57] LABS: Alanine Aminotransferase 16 IU/L (<35); Albumin 4.2 g/dL (3.5-5.0); Albumin Globulin Ratio 1.9 (1.0-2.8); Alkaline Phosphatase 70 U/L (38-126); Aspartate Aminotransferase 31 IU/L (14-36); BUN Creatinine Ratio 22.4 (6-22); Bilirubin Total 0.3 mg/dL (0.2-1.3); Blood Urea Nitrogen 15 mg/dL (7-17); Calcium 9.6 mg/dL (8.4-10.2); Carbon Dioxide 28 mmol/L (22-32); Chloride 105 mmol/L (98-107); Estimated Glomerular Filt Rate > 60 mL/min (>60); Globulin 2.2 g/dL (1.7-4.1); Glucose 84 mg/dL (80-110); HEMOLYSIS < 15 (0-50); Potassium 4.1 mmol/L (3.4-5.1); Sodium 138 mmol/L (137-145); Total Protein 6.4 g/dL (6.3-8.2)
== END ==
PROVIDERS: PCP Family Medicine; Referring Provider Family Medicine; Visit Provider Family Medicine
DX: D64.9 Anemia, unspecified (principal); E87.6 Hypokalemia
CPT/HCPCS: 36415; 80053; 85025

== ENCOUNTER 2024-06-23 08:50 | Outpatient (CLI) | payer MEDICARE, SELFPAY ==
[2024-01-17 09:25] VITALS: BMI 19.6
[2024-06-23] VITALS (8 sets, daily range): BP systolic 122–175; BP diastolic 76–81; PULSE 52–68; RESP 12–16; TEMP 37; O2SAT 98–100
--- NOTE | 2024-06-23 09:15 | DI.RAD.S_ITS ---
PROCEDURE: PAIN C/T INTERLAMINAR INJECT INDICATIONS: C6/7 TL KISHORE COMPARISON: None. FINDINGS: Fluoroscopic spot filming was performed to verify placement of spinal needles at the C6-7 level(s), as labeled on the films. Appropriate location(s) of the needle tip(s) was confirmed by injection of iodinated contrast. IMPRESSION: Needle placement overlying C6-7 moderate Dictated by: Nicole Funez M.D. on 06/23/2024 at 14:28 Approved by: Nicole Funez M.D. on 06/23/2024 at 14:30
[2024-06-23] MEDS: MIDAZOLAM 2 MG/2 ML VIAL IV (09:52)
[2024-06-23] MEDS: BUPIVACAINE 0.25% (PF) VIAL 2 ML INJ (09:59)
[2024-06-23] MEDS: iopamidoL 15 ML VIAL 3 ML INJ (10:00)
[2024-06-23] MEDS: DEXAMETHASONE 10 MG/ML VIAL 20 MG INJ (10:00)
--- NOTE | 2024-06-23 10:19 | P.PCN_ITS ---
Date/Time/Diagnoses Date of procedure: 06/23/24 Time of procedure: 10:19 Pre-procedure diagnosis: 1. CERVICAL STENOSIS, 2. CERVICAL HNP WITH UPPER EXTREMITY RADICULAR FEATURES Post-procedure diagnosis: same Procedure Notes Procedure: 1. FLUORSCOPICALLY GUIDED CONTRAST CONTROLLED INTERLAMINAR EPIDURAL STEROID INJECTION - C6/7 TL KISHORE Indications: Tawanna is referred by Dr. Rios for treatment of Cervical HNP with Upper Extremity Paresthesias. Physician: hTomas Andrew Total Fluoroscopy time (seconds): 31 Total sedation minutes: 23 Complications: none Procedure in detail & Post-procedure care: FINDINGS Cervical Stenosis due to disc deterioration and nerve root irritation and nerve root irritation DESCRIPTION OF PROCEDURE Fluoroscopically guided, contrast-controlled C6/7 translaminar epidural steroid injection with conscious sedation. Following review of allergy and review of potential side effects and complications, including, but not necessarily limited to, infection, allergic reaction, local tissue breakdown, temporary as well as permanent nerve injury, stroke, paralysis, and possible , the patient indicated that patient understood and agreed to proceed. An informed consent document was signed by the patient, witnessed by a nurse, and placed in the patient's chart. Additionally, other treatment options including modalities, medications, and physical therapy were reviewed with the patient. After review of previous anaesthesic history and IV conscious sedation the patient was deemed safe to proceed with today?s procedure with IV conscious sedation as ASA class II designation. Safety time-out was performed to confirm patient ID, procedure to be performed and site of procedure. IV sedation was accomplished with a combination of 2mg of Versed administered by the RN after DO order, titrated to patient comfort during the course of the procedure while the patient remained responsive to all verbal commands. In the prone position, following sterile prep and drape of the cervical region, the C6/7 translaminar space was identified fluoroscopically. The skin was anesthetized via a 25-gauge 1.5-inch needle with 1% lidocaine solution. At this point, a 25-gauge, 2.5-inch short bevel spinal needle was atraumatically introduced and advanced under fluoroscopic guidance into epidural space at the C6/7 translaminar space. Depth was confirmed on lateral view. Radiological data, including multiple fluoroscopic views of the cervical spine, reveal a spinal needle at the C6/7 translaminar space. Lateral views then show placement of the needle in the epidural space. Subsequent views show contrast material flowing superiorly and inferiorly in the epidural space. DSA fluoroscopy with live contrast injection, once again, confirmed no vascular or intrathecal uptake. At this point, using loss of resistance technique with saline and air, the epidural space was entered. Following negative aspiration, injection of approximately 1.5 cc of Isovue-200 with live fluoroscopy in the AP view confirmed epidural flow in the epidural space without vascular or intrathecal uptake observed. Subsequently, a test dose of 1 cc of 1% lidocaine solution was injected and patient was observed for two minutes without signs or symptoms of complications, including abdominal pain, shortness of breath, bilateral upper or lower extremity weakness, nausea and vomiting, prior to steroid injection. At this point, 2cc or 20mg of dexamethasone was then injected without incident. The patient tolerated the procedure well without signs or symptoms of complic ations prior to being transferred to the recovery area for further monitoring, The patient was then transferred to the recovery area where they were observed for an appropriate period of time after the injection. The patient reported a VAS score of 7 prior to the procedure and a post-procedure VAS of 1. POST OP INSTRUCTIONS The patient was provided a Pain Log to continue to record their response to the target-specific procedure prior to follow-up visit with the referring provider. Additionally, specific post-injection care instructions and a contact number to our office were provided if concerns arise regarding possible complications associated with the procedure are suspected.
== END 2024-06-23 10:33 | disposition home or self-care (01) ==
PROVIDERS: PCP Family Medicine; Referring Provider Physical Medicine & Rehabilitation; Visit Provider Physical Medicine & Rehabilitation
DX: M48.02 Spinal stenosis, cervical region (principal); M50.123 Cervical disc disorder at C6-C7 level with radiculopathy
CPT/HCPCS: 62321; 99152; 99153; J1100; J2250; J3490

== ENCOUNTER → 2024-08-19 08:07 | Outpatient (CLI) | payer MEDICARE, SELFPAY ==
[2024-01-17 09:25] VITALS: BMI 19.6
--- NOTE | 2024-08-19 | DI.MG.S_ITS ---
BILATERAL DIGITAL SCREENING MAMMOGRAM 3D/2D WITH CAD: 08/19/2024 CLINICAL: Routine screening. Comparison is made to exams dated: 08/14/2023 mammogram, 07/23/2022 mammogram, and 06/20/2021 mammogram - [facility]. The breasts are heterogeneously dense, which may obscure small masses (category c / 51-75% glandular tissue). Current study was also evaluated with a Computer Aided Detection (CAD) system. There are benign post operative findings in the right breast. No significant masses, calcifications, or other findings are seen in either breast. There has been no significant interval change. IMPRESSION: BENIGN There is no mammographic evidence of malignancy. A 1 year screening mammogram is recommended. Based on the Tyrer Cuzick model (a risk assessment model) the patient's lifetime risk is 9.0% and her 10 year risk is 5.4%. According to the ACR, ACS, and NCCN guidelines, an annual breast MRI exam along with mammogram is recommended if the patient's lifetime risk is 20% or greater. This exam was interpreted at Station ID: [id number]. NOTE: For mammograms, a report in lay terms will be sent to the patient. Approximately 15% of breast malignancies will not be visualized mammographically. In the management of a palpable breast mass, a negative mammogram must not discourage biopsy of a clinically suspicious lesion. Electronically Signed By: Caroline dunham/carmelina:08/19/2024 16:32:11 letter sent: Normal Exam ACR BI-RADS Category 2: Benign
== END ==
PROVIDERS: PCP Family Medicine; Referring Provider Family Medicine; Visit Provider Family Medicine
DX: Z12.31 Encounter for screening mammogram for malignant neoplasm of breast (principal); R92.333 Mammographic heterogeneous density, bilateral breasts
CPT/HCPCS: 77063; 77067

== ENCOUNTER → 2024-10-12 07:40 | Outpatient (CLI) | payer MEDICARE, SELFPAY ==
[2024-01-17 09:25] VITALS: BMI 19.6
--- NOTE | 2024-10-12 07:41 | DI.RAD.S_ITS ---
PROCEDURE: XR FOOT RT MIN 3V INDICATIONS: r/o fracture without known injury TECHNIQUE: 3 views of the foot were acquired. COMPARISON: None. FINDINGS: Bones: No fractures or dislocations. No suspicious bony lesions. Soft tissues: No tibiotalar joint effusion. Achilles tendon appears normal. IMPRESSION: No acute bony abnormality. Dictated by: Unruly Lanza M.D. on 10/12/2024 at 9:26 Approved by: Unruly Lanza M.D. on 10/12/2024 at 9:27
== END ==
PROVIDERS: Family Provider Family Medicine; PCP Family Medicine; Referring Provider Nurse Practitioner Family; Visit Provider Nurse Practitioner Family
DX: M79.671 Pain in right foot (principal)
CPT/HCPCS: 73630

== ENCOUNTER 2024-10-27 09:06 | Outpatient (CLI) | payer MEDICARE, SELFPAY ==
[2024-01-17 09:25] VITALS: BMI 19.6
[2024-10-27] VITALS (9 sets, daily range): BP systolic 124–177; BP diastolic 60–81; PULSE 51–58; RESP 13–16; TEMP 36.6; O2SAT 97–100
--- NOTE | 2024-10-27 09:07 | DI.RAD.S_ITS ---
PROCEDURE: PAIN C/T INTERLAMINAR INJECT INDICATIONS: C 6/7 TL KISHORE COMPARISON: [facility], , PAIN C/T INTERLAMINAR INJECT, 06/23/2024, 10:00. FINDINGS/IMPRESSION: Fluoroscopic spot filming was performed to verify placement of spinal needles at the C6-C7 posterior epidural level(s), as labeled on the films. Appropriate location(s) of the needle tip(s) was confirmed by injection of iodinated contrast. Dictated by: Lela Calvin MD, PhD on 10/27/2024 at 11:15 Approved by: Lela Calvin MD, PhD on 10/27/2024 at 11:16
[2024-10-27] MEDS: MIDAZOLAM 2 MG/2 ML VIAL IV (10:12)
[2024-10-27] MEDS: BUPIVACAINE 0.25% (PF) VIAL 2 ML INJ (10:19)
[2024-10-27] MEDS: DEXAMETHASONE 10 MG/ML VIAL 20 MG INJ (10:19)
[2024-10-27] MEDS: iopamidoL 15 ML VIAL 3 ML INJ (10:19)
--- NOTE | 2024-10-27 10:34 | P.PCN_ITS ---
Date/Time/Diagnoses Date of procedure: 10/27/24 Time of procedure: 10:34 Pre-procedure diagnosis: 1. CERVICAL STENOSIS, 2. CERVICAL HNP WITH UPPER EXTREMITY RADICULAR FEATURES Post-procedure diagnosis: same Procedure Notes Procedure: 1. FLUORSCOPICALLY GUIDED CONTRAST CONTROLLED INTERLAMINAR EPIDURAL STEROID INJECTION - C6/7 TL KISHORE Indications: Tawanna is referred by Dr. Rios for treatment of Cervical HNP with Upper Extremity Paresthesias. Physician: Thomas Andrew Total Fluoroscopy time (seconds): 26 Total sedation minutes: 17 Complications: none Procedure in detail & Post-procedure care: FINDINGS Cervical Stenosis due to disc deterioration and nerve root irritation and nerve root irritation DESCRIPTION OF PROCEDURE Fluoroscopically guided, contrast-controlled C6/7 translaminar epidural steroid injection with conscious sedation. Following review of allergy and review of potential side effects and complications, including, but not necessarily limited to, infection, allergic reaction, local tissue breakdown, temporary as well as permanent nerve injury, stroke, paralysis, and possible , the patient indicated that patient understood and agreed to proceed. An informed consent document was signed by the patient, witnessed by a nurse, and placed in the patient's chart. Additionally, other treatment options including modalities, medications, and physical therapy were reviewed with the patient. After review of previous anaesthesic history and IV conscious sedation the patient was deemed safe to proceed with today?s procedure with IV conscious sedation as ASA class II designation. Safety time-out was performed to confirm patient ID, procedure to be performed and site of procedure. IV sedation was accomplished with a combination of 2mg of Versed administered by the RN after DO order, titrated to patient comfort during the course of the procedure while the patient remained responsive to all verbal commands. In the prone position, following sterile prep and drape of the cervical region, the C6/7 translaminar space was identified fluoroscopically. The skin was anesthetized via a 25-gauge 1.5-inch needle with 1% lidocaine solution. At this point, a 25-gauge, 2.5-inch short bevel spinal needle was atraumatically introduced and advanced under fluoroscopic guidance into epidural space at the C6/7 translaminar space. Depth was confirmed on lateral view. Radiological data, including multiple fluoroscopic views of the cervical spine, reveal a spinal needle at the C6/7 translaminar space. Lateral views then show placement of the needle in the epidural space. Subsequent views show contrast material flowing superiorly and inferiorly in the epidural space. DSA fluoroscopy with live contrast injection, once again, confirmed no vascular or intrathecal uptake. At this point, using loss of resistance technique with saline and air, the epidural space was entered. Following negative aspiration, injection of approximately 1.5 cc of Isovue-200 with live fluoroscopy in the AP view confirmed epidural flow in the epidural space without vascular or intrathecal uptake observed. Subsequently, a test dose of 1 cc of 1% lidocaine solution was injected and patient was observed for two minutes without signs or symptoms of complications, including abdominal pain, shortness of breath, bilateral upper or lower extremity weakness, nausea and vomiting, prior to steroid injection. At this point, 2cc or 20mg of dexamethasone was then injected without incident. The patient tolerated the procedure well without signs or symptoms of complic ations prior to being transferred to the recovery area for further monitoring, The patient was then transferred to the recovery area where they were observed for an appropriate period of time after the injection. The patient reported a VAS score of 7 prior to the procedure and a post-procedure VAS of 1. POST OP INSTRUCTIONS The patient was provided a Pain Log to continue to record their response to the target-specific procedure prior to follow-up visit with the referring provider. Additionally, specific post-injection care instructions and a contact number to our office were provided if concerns arise regarding possible complications associated with the procedure are suspected.
== END 2024-10-27 10:45 | disposition home or self-care (01) ==
PROVIDERS: Family Provider Family Medicine; PCP Family Medicine; Referring Provider Physical Medicine & Rehabilitation; Visit Provider Physical Medicine & Rehabilitation
DX: M48.02 Spinal stenosis, cervical region (principal); M50.123 Cervical disc disorder at C6-C7 level with radiculopathy
CPT/HCPCS: 62321; 99152; J1100; J2250; J3490

== ENCOUNTER → 2024-12-09 14:16 | Outpatient (CLI) | payer MEDICARE, SELFPAY ==
[2024-01-17 09:25] VITALS: BMI 19.6
--- NOTE | 2024-12-09 14:17 | DI.RAD.S_ITS ---
PROCEDURE: XR CERVICAL SPINE 4V OR 5V INDICATIONS: NECK PAIN TECHNIQUE: 5 views of the cervical spine were acquired. COMPARISON: [facility], CR, XR CERVICAL SPINE 4V OR 5V, 07/02/2023, 9:35. FINDINGS: Diffuse osseous demineralization. The vertebral body heights are preserved. Multilevel endplate sclerosis. Multilevel intervertebral disc height loss. Mildly exaggerated cervical lordosis. Moderate foraminal narrowing at the bilateral C4-C5 and C5-C6 levels. Multilevel facet and uncinate arthropathy. The C1 and C2 lateral masses are in symmetric alignment with the dens on the odontoid view. No prevertebral soft tissue edema. Overall, the findings are similar to 07/02/2023. IMPRESSION: Multilevel cervical osteoarthrosis with moderate foraminal stenoses at the bilateral C4-C5 and C5-C6 levels. Dictated by: Tyler Haney M.D. on 12/09/2024 at 15:49 Approved by: Tyler Haney M.D. on 12/09/2024 at 15:51
== END ==
PROVIDERS: Family Provider Family Medicine; PCP Family Medicine; Referring Provider Physical Medicine & Rehabilitation; Visit Provider Physical Medicine & Rehabilitation
DX: M47.22 Other spondylosis with radiculopathy, cervical region (principal); M48.02 Spinal stenosis, cervical region
CPT/HCPCS: 72050

== ENCOUNTER → 2024-12-21 07:16 | Outpatient (CLI) | payer MEDICARE, SELFPAY ==
[2024-01-17 09:25] VITALS: BMI 19.6
[2024-12-21 07:53] LABS: Add Manual Diff / Slide Review NO; Basophils Absolute Auto 100 /uL (0-100); Basophils Percent Auto 0.9 % (0-2); Eosinophils Absolute Auto 100 /uL (0-450); Eosinophils Percent Auto 2.1 % (2-4); Hematocrit 37.5 % (36-46); Hemoglobin 12.5 g/dL (12.0-16.0); Lymphocytes Absolute Auto 2300 /uL (1100-4500); Lymphocytes Percent Auto 35.5 % (25-40); Mean Corpuscular HGB Conc 33.4 % (30-36); Mean Corpuscular Hemoglobin 29.7 PG (26-34); Mean Corpuscular Volume 88.8 fL (80-100); Monocytes Absolute Auto 500 /uL (0-900); Monocytes Percent Auto 7.1 % (3-14); Neutrophils Absolute Auto 3500 /uL (1500-7000); Neutrophils Percent Auto 54.4 % (50-75); Platelet Count 212 X10^3/uL (150-400); Red Blood Cell Count 4.22 X10^6/uL (4.0-5.2); Red Cell Distribution Width 13.7 % (11.6-14.8); White Blood Cell Count 6.5 X10^3/uL (4.5-11.0)
[2024-12-21 08:15] LABS: Alanine Aminotransferase 19 IU/L (<35); Albumin 4.5 g/dL (3.5-5.0); Alkaline Phosphatase 70 U/L (38-126); Aspartate Aminotransferase 32 IU/L (14-36); BUN Creatinine Ratio 19.4 (6-22); Bilirubin Total 0.5 mg/dL (0.2-1.3); Blood Urea Nitrogen 14 mg/dL (7-17); Calcium 9.9 mg/dL (8.4-10.2); Carbon Dioxide 27 mmol/L (22-32); Chloride 103 mmol/L (98-107); Cholesterol 266 mg/dL (140-199); Estimated Glomerular Filt Rate > 60 mL/min (>60); Globulin 2.3 g/dL (1.7-4.1); Glucose 98 mg/dL (80-110); HDL Cholesterol 93 mg/dL (40-60); HEMOLYSIS < 15 (0-50); LDL Cholesterol Calculated 160 mg/dL (<100); Potassium 4.3 mmol/L (3.4-5.1); Sodium 137 mmol/L (137-145); Total Protein 6.8 g/dL (6.3-8.2); Triglycerides 64 mg/dL (35-150)
[2024-12-21 09:02] LABS: Vitamin B12 720 pg/mL (239-931)
== END ==
PROVIDERS: Family Provider Family Medicine; PCP Family Medicine; Referring Provider Family Medicine; Visit Provider Family Medicine
DX: D64.9 Anemia, unspecified (principal); E78.5 Hyperlipidemia, unspecified; E87.6 Hypokalemia
CPT/HCPCS: 36415; 80053; 80061; 82607; 85025

== ENCOUNTER 2025-04-26 14:45 | Emergency (ER) | payer MEDICARE, SELFPAY ==
[2025-03-15 10:40] VITALS: BMI 19.6
[2025-04-26 14:58] VITALS: BP 128/61; PULSE 60; RESP 20; TEMP 37; O2SAT 96; BMI 18.8
[2025-04-26] MEDS: PROPARACAINE 0.5% OPHTH SOL 1 DROPS EYE-LEFT (15:59)
[2025-04-26] MEDS: FLUORESCEIN 1 MG STRIP EYE-LEFT (15:59)
--- NOTE | 2025-04-26 16:22 | ED_ITS ---
<Statement entered by Damian Corral, DO - 04/27/25 17:43> Co-sign statement: I was available for consultation during this patient's emergency department visit. This chart is being signed by myself for administrative purposes only. I do not have direct contact with this patient during this visit. They were seen independently by the APC. HPI - Eye Problem General Chief complaint: Eye Problems Stated complaint: injury to eye Time Seen by Provider: 04/26/25 14:57 History of Present Illness HPI Narrative: 70-year-old female presents to the ED with a left eye injury sustained just prior to arrival. Patient was gardening, when she accidentally had a branch poke her in the left eye. Patient had some bleeding from that eye and pain, however no visual changes. Patient is status post cataract surgery with 1 eye adjusted for distance vision, versus the other 1 adjusted for near vision. No nausea, vomiting. Related Data Home Medications ?Medication ?Instructions ?Recorded ?Confirmed calcium 600 mg (as 1 tab PO DAILY 10/03/2102/16 carbonate)-vitamin D3 5 mcg (200 unit) tablet lactase PO 02/11/24 03/15/25 gabapentin 300 mg capsule 300 mg PO BID 08/24/2403/15 lactobacillus combination no.9 4 4,000 mmu cells PO DA SABINE 08/24/24 03/15/25 billion cell capsule (Adult 50 Plus Probiotic) Biocidin Broad Spectrum PO 11/03/24 03/15/25 magnesium glycinate 100 mg (as 100 mg PO DAILY 5 03/15/25 glycinate) tablet methylsulfonylmethane 1,000 mg 1,000 mg PO BID 5 03/15/25 tablet (MSM) Previous Rx's ?Medication ?Instructions ?Recorded [id number] See Rx Instructions .Route 06/18/22 50 mg-325 mg-40 mg tablet .COMPLEX #30 tabs Held on 12/14/24. Instructions: Home Medication placed on hold at Doctor's office tretinoin 0.1 % topical cream 1 applic topical BEDTIME #20 grams 04/25/23 dicyclomine 10 mg capsule 10 mg PO BID PRN abdominal p ain 11/06/24 and bloating #30 caps methocarbamol 750 mg tablet 750 mg PO BID PRN muscle s pasm #30 11/18/24 tabs sumatriptan succinate 100 mg tablet 100 mg PO ONCE #12 tabs 02/17/25 trazodone 100 mg tablet See Rx Instructions .Route 0 03/04/25 .COMPLEX #60 tabs celecoxib 100 mg capsule 100 mg PO DAILY PRN for pain #120 03/15/25 caps ciprofloxacin HCl 0.3 % eye drops 2 drp EYE-LEFT Q6HR 5 days #2.5 mL 04/26/25 ciprofloxacin HCl 0.3 % eye drops 2 drp EYE-LEFT Q6HR 5 days #2.5 mL 04/26/25 Allergies Allergy/AdvReac Type Severity Reaction Status Date / Time adhesive tape AdvReac Severe Blister Verified 04/13/25 15:20 Review of Systems Constitutional Constitutional: Denies chills, Denies fatigue, Denies fever(s), Denies frequent falls, Denies lethargy and Denies weakness Eyes Eyes: Denies change in vision, Denies eye discharge, Denies irritation and Denies loss of vision Comments: Left eye injury and bleeding, pain ENT Ears, Nose, Mouth, and Throat: Denies change in voice, Denies dizziness, Denies neck pain, Denies sore throat and Denies throat swelling Cardiovascular Cardiovascular: Denies chest pain, Denies irregular heart rhythm, Denies lightheadedness, Denies palpitations, Denies dyspnea, Denies dyspnea on exertion and Denies orthopnea Respiratory Respiratory: Denies cough, Denies dyspnea, Denies dyspnea on exertion and Denies wheezing Gastrointestinal Gastrointestinal: Denies abdominal pain, Denies change in bowel habits, Denies diarrhea, Denies nausea and Denies vomiting Musculoskeletal Musculoskeletal: Denies neck pain and Denies numbness Integumentary/Breasts Skin/Breast: Denies pruritus, Denies erythema, Denies rash and Denies wounds Neurologic Neurologic: Denies behavioral changes, Denies confusion, Denies dizziness, Denies frequent falls, Denies loss of vision, Denies numbness and Denies weakness Psychiatric Psychiatric: Denies anxiety, Denies behavioral changes, Denies confusion, Denies depression, Denies homicidal ideation and Denies suicidal ideation Endocrine Endocrine: Denies fatigue, Denies flushing and Denies palpitations Hematologic/Lymphatic Hematologic/Lymphatic: Denies easy bruising Allergic/Immunologic Allergic/Immunologic: Denies urticaria, Denies throat swelling and Denies wheezing Patient History Medical History Depression Cervical radiculopathy Osteoarthritis of hands, bilateral Facet arthropathy, lumbar Degenerative joint disease of both hips Osteoarthritis of left knee Lumbar spondylosis Depression Skin problem Osteoarthritis Migraines Back problem Scoliosis Osteopenia Surgical History History of breast biopsy (~1989) Status post wrist surgery (~2011) Family History Father Skin cancer Heart disease Hypertension Mother Cancer Brother Hyperlipidemia Sister Skin cancer Grandfather Cancer Grandmother Cancer Grandfather Stroke Social History marital status: number of children: 0 household members: spouse lives independently: Yes education level: master's degree occupational status: other Smoking Status: Never smoker alcohol intake: current substance use type: does not use Smoking Status: Never smoker alcohol intake frequency: a few times a week Exam Narrative Exam Narrative: Const General:?cooperative, healthy appearing and comfortable [facility] Head:?normal to inspection Ears:?hearing grossly normal bilaterally Nose:?external nose normal Face and sinus:?normal facial exam and sinuses nontender Mouth:?oral mucosae normal Throat:?posterior oropharynx normal Eyes General:? There is conjunctival hemorrhage of the left lateral conjunctiva. PERRLA. Vision is 20/70 OD, 20/20 OS, 20/20 OU. Status post cataract surgery with right eye calibrated for distance vision, left eye for near vision. Fluorescein exam is positive for left lateral conjunctival abrasions. No foreign body noted on exam. Neck Neck:?normal visual inspection and no lymphadenopathy noted Resp Effort & Inspection:?normal respiratory effort Auscultation:?clear to auscultation bilaterally Cardio Rate:?regular rate Rhythm:?regular rhythm Neuro General:?patient alert, patient awake and patient oriented x3 Initial Vital Signs Initial Vital Signs: Vital Signs Temperature 98.6 F 04/26/25 14:58 Pulse Rate 60 04/26/25 14:58 Respiratory Rate 20 04/26/25 14:58 Blood Pressure 128/61 04/26/25 14:58 Pulse Oximetry 96 04/26/25 14:58 Oxygen Delivery Method Room Air 04/26/25 14:58 Course Orders Ordered: Discontinued Medications Fluorescein Sodium (Fluorescein 1 Mg Strip) 1 mg EYE-LEFT NOW ONE Stop: 04/26/25 15:43 Last Admin: 04/26/25 15:59 Dose: 1 mg Documented By: RB Proparacaine HCl (Proparacaine 0.5% Ophth Brianna) 1 drops EYE-LEFT NOW ONE Stop: 04/26/25 15:43 Last Admin: 04/26/25 15:59 Dose: 1 drop Documented By: RB Vital Signs Vital signs: Vital Signs - 8 hr 04/26/25 14:58 Temperature 98.6 F Pulse Rate 60 Respiratory Rate 20 Blood Pressure 128/61 Pulse Oximetry 96 Oxygen Delivery Method Room Air MDM - Eye Problem MDM Narrative Medical decision making narrative: 70-year-old female presents to the ED with a left eye injury sustained just prior to arrival. Concern for corneal abrasion versus conjunctival abrasion versus foreign object versus conjunctival hemorrhage versus other. Fluorescein eye exam is positive for conjunctival hemorrhages to the left lateral conjunctiva. No foreign objects visualized on exam. Vision is baseline. Prescribed antibiotic eyedrops. Recommend follow-up with ophthalmology as soon as possible. ED return precautions discussed with patient. Patient verbalized understanding. Medical records reviewed: Yes Discharge Plan Departure Patient Disposition: Home Clinical Impression: Eye injury Qualifiers: Encounter type: initial encounter Laterality: left Qualified Code(s): S05.92XA - Unspecified injury of left eye and orbit, initial encounter Instructions: DI for Eye Contusion Activity Restrictions/Additional Instructions: You were evaluated in the emergency department today for an eye injury. It appears that you have a conjunctival abrasion. This will spontaneously heal up, however you are being prescribed antibiotic drops to prevent infections. Please follow-up with your corporate travel consultant in 1-2 days for further evaluation. Return to the ED if you have worsening symptoms, changes in vision. Prescriptions: New ciprofloxacin HCl 0.3 % drops 2 drp EYE-LEFT Q6HR 5 Days Qty: 2.5 0RF ciprofloxacin HCl 0.3 % drops 2 drp EYE-LEFT Q6HR 5 Days Qty: 2.5 0RF No Action [id number]-[id number] 50-325-40 mg tablet See Rx Instructions .ROUTE .COMPLEX Qty: 30 2RF Dose Instruction: Take 1 tablet by mouth every 4 hours as needed Rx Instructions: Take 1 tablet by mouth every 4 hours as needed tretinoin 0.1 % cream 1 applic TOP BEDTIME Qty: 20 1RF dicyclomine 10 mg capsule 10 mg PO BID PRN (Reason: abdominal pain and bloating) Qty: 30 0RF methocarbamol 750 mg tablet 750 mg PO BID PRN (Reason: muscle spasm) Qty: 30 2RF sumatriptan succinate 100 mg tablet 100 mg PO ONCE Qty: 12 12RF Patient Comments: 8-10 migraines/30 days trazodone 100 mg tablet See Rx Instructions .ROUTE .COMPLEX Qty: 60 3RF Dose Instruction: Take 1-2 tablets (100-200 mg) by mouth at bedtime as needed for sleep Patient Comments: approx 2 months ago Rx Instructions: Take 1-2 tablets (100-200 mg) by mouth at bedtime as needed for sleep; Biocidin Broad Spectrum PO lactase PO calcium carbonate-vitamin D3 600 mg-5 mcg (200 unit) Tablet 1 tab PO DAILY Adult 50 Plus Probiotic 4 billion cell capsule 4,000 mmu cells PO DAILY Rx Instructions: administer with a meal gabapentin 300 mg capsule 300 mg PO BID methylsulfonylmethane [MSM] 1,000 mg tablet 1,000 mg PO BID magnesium glycinate 100 mg tablet 100 mg PO DAILY celecoxib 100 mg capsule 100 mg PO DAILY PRN (Reason: for pain) Qty: 120 3RF Referrals: Roula Rios DO [Primary Care Provider, Medical] Stand Alone Forms: Patient Portal/API
[2025-04-26 16:28] VITALS: BP 145/74; PULSE 58; RESP 18; TEMP 36.8; O2SAT 99
== END 2025-04-26 16:30 | disposition home or self-care (01) ==
PROVIDERS: Emergency Provider Student in an Organized Health Care Education/Training Program; Family Provider Family Medicine; PCP Family Medicine
DX: S05.92XA Unspecified injury of left eye and orbit, initial encounter (principal); X58.XXXA Exposure to other specified factors, initial encounter; Y93.H2 Activity, gardening and landscaping
CPT/HCPCS: 99282

== ENCOUNTER 2025-07-08 14:26 | Outpatient (CLI) | payer MEDICARE, SELFPAY ==
[2025-03-15 10:40] VITALS: BMI 19.6
[2025-07-08] VITALS (8 sets, daily range): BP systolic 109–147; BP diastolic 55–81; PULSE 51–68; RESP 16–20; TEMP 37.2; O2SAT 97–99
[2025-07-08] MEDS: MIDAZOLAM 2 MG/2 ML VIAL IV (16:12)
[2025-07-08] MEDS: LIDOCAINE 1% 20 ML 5 ML INJ (16:17)
[2025-07-08] MEDS: LIDOCAINE 2% INJ MDV 20ML 5 ML INJ (16:17)
--- NOTE | 2025-07-08 16:31 | PM.PROC.IR.1 ---
Date/Time/Diagnoses Date of procedure: 07/08/25 Time of procedure: 16:31 Pre-procedure diagnosis: 1. FACET ARTHROPATHY Post-procedure diagnosis: same Procedure Notes Procedure: 1. BILATERAL L3, L4 AND L5 DIAGNOSTIC MB BLOCKS Indications: Tawanna is referred by Dr. Rios for treatment of Bilateral Axial LBP. Physician: Thomas Andrew Total Fluoroscopy time (seconds): 12 Total sedation minutes: 14 Complications: none Procedure in detail & Post-procedure care: DESCRIPTION OF PROCEDURE Fluoroscopically guided, contrast-controlled bilateral L3, L4 and L5 medial branch blocks with 0.5cc of 2% Lidocaine. Following review of allergy and review of potential side effects and complications, including, but not necessarily limited to, infection, allergic reaction, local tissue breakdown, nerve injury, paralysis, stroke and possible , the patient indicated that the patient understood and agreed to proceed. An informed consent document was signed by the patient, witnessed by a nurse, and placed in the patient's chart. After review of previous anaesthesic history and IV conscious sedation the patient was deemed safe to proceed with today's procedure with IV conscious sedation as ASA class II designation. Safety time-out was performed to confirm patient ID, procedure to be performed and site of procedure. IV sedation was accomplished with a combination of 2mg of Versed was administered by the RN after DO order, titrated to patient comfort during the course of the procedure while the patient remained responsive to all verbal commands In the prone position, following sterile prep and drape of the lumbar region, the right L3, L4 and L5 anatomical location of the medial branch of the dorsal ramus was identified fluoroscopically. Subsequently an anesthetic skin wheal using 1% lidocaine solution was initiated at each of the anatomical spots. Subsequently then a 22-gauge 3.5-inch spinal needle was atraumatically introduced and advanced under fluoroscopic guidance at each of the corresponding sites at the right L3, L4 and L5 MB. After negative aspiration, 0.2cc of Isovue 200 was injected, confirming placement without vascular or intrathecal uptake. Subsequently then 0.5cc of 2% Lidocaine solution was injected at each of the corresponding sites at the right L3, L4 and L5 medial branch locations. The identical procedure was replicated on the left. The patient tolerated the procedure well without signs or symptoms of complications. The patient tolerated the procedure well without signs or symptoms of complications prior to transfer to the recovery area continued monitoring without incident. Post-procedure, the patient was monitored initiating provocative activities to measure the amount of relief from block of the facetogenic pain. The patient reported a VAS of 7 prior to the procedure and a post-procedure VAS of 1. It has been a pleasure to assist in the diagnostic and therapeutic care of your patient. POST OP INSTRUCTIONS The patient was provided with a Pain Log to complete over the next several hours and subsequent days prior to the patient's follow up with the ordering physician. If the patient has jury consultant relief to the solution applied, then they may be a candidate for medial branch rhizotomy. The patient is aware, was provided, once again, with a Pain Log and will follow up with the referring physician for review and clinical correlation
== END 2025-07-08 16:45 | disposition home or self-care (01) ==
LOC: RAD 14:26
PROVIDERS: Family Provider Family Medicine; PCP Family Medicine; Referring Provider Physical Medicine & Rehabilitation; Visit Provider Physical Medicine & Rehabilitation
DX: M47.816 Spondylosis without myelopathy or radiculopathy, lumbar region (principal)
CPT/HCPCS: 64493; 64494; 99152; J2250

== ENCOUNTER 2025-08-17 07:28 | Outpatient (CLI) | payer MEDICARE, SELFPAY ==
[2025-03-15 10:40] VITALS: BMI 19.6
[2025-08-17] VITALS (12 sets, daily range): BP systolic 119–169; BP diastolic 59–79; PULSE 51–64; RESP 16–20; TEMP 36.6; O2SAT 97–100
[2025-08-17] MEDS: MIDAZOLAM 2 MG/2 ML VIAL IV (08:39)
[2025-08-17] MEDS: LIDOCAINE 1% 20 ML 5 ML INJ (08:46)
[2025-08-17] MEDS: MIDAZOLAM 2 MG/2 ML VIAL 1 MG IV (08:54)
--- NOTE | 2025-08-17 09:23 | P.PCN_ITS ---
Date/Time/Diagnoses Date of procedure: 08/17/25 Time of procedure: 09:23 Pre-procedure diagnosis: 1. RECALCITRANT FACET ARTHROPATHY Post-procedure diagnosis: same Procedure Notes Procedure: 1. BILATERAL L3, L4 AND L5 MEDIAL BRANCH RADIOFREQUENCY NEUROTOMY Indications: Tawanna is referred by Dr. Rios for treatment of facet arthropathy. Physician: Thomas Andrew Total Fluoroscopy time (seconds): 18 Total sedation minutes: 36 Complications: none Procedure in detail & Post-procedure care: DESCRIPTION OF PROCEDURE Bilateral L3, L4 and L5 medial branch radiofrequency neurotomy The patient is well known to this clinic having undergone previous facet injections with good but temporary relief. The patient has experienced appropriate, concordant relief with previous facet and median branch blocks but the patient's pain has been recalcitrant to further conservative measures. Therefore, based upon the patient's relief and persistent symptoms, the patient is considered an appropriate candidate for facet rhizotomy. All of the patient's questions regarding the risks versus benefits of the procedure, including, but not limited to, bleeding, infection, temporary as well as lasting nerve injury, paralysis, stroke, and , as well treatment alternatives were answered to satisfaction. After obtaining informed consent, denial of pertinent drug allergies, as well as being made aware of the potential risks of bleeding, infection, spinal cord trauma, paralysis, temporary and permanent nerve damage, seizure, stroke, and possible , the patient was brought to the fluoroscopy suite and positioned prone on the fluoroscopy table. After review of previous anaesthesic history and IV conscious sedation the patient was deemed safe to proceed with today's procedure with IV conscious sedation as ASA class II designation. Safety time-out was performed to confirm patient ID, procedure to be performed and site of procedure. IV sedation was accomplished with a combination of 3mg of Versed administered by the RN after DO order, titrated to patient comfort during the course of the procedure while the patient remained responsive to all verbal commands. The lumbar region was prepped in usual sterile fashion and covered with a fenestrated drape in the usual sterile fashion. Appropriate monitors applied including pulse oximeter, pulse, and blood pressure for regular monitoring throughout the procedure. After local infiltration using 1% lidocaine, under fluoroscopic guidance, a 10- cm RF insulated needle with a 10-mm active tip was positioned parallel to the junction of the right the superior articulating process where the L5 medial branch resides. Needle placement was confirmed with motor stimulation of .5v on the right which produced local stimulation without radicular component. The stimulation was then increased to 2v with, once again, only local multifidus stimulation without radicular component. The needle was then removed and the identical procedure was performed along the length of the right L4 medial branch with motor stimulation at .7v on the right. The identical procedure was once again performed along the length of the right L3 and medial branch with motor st imulation of .5v on the right. The medial branches were then anesthetised with 0.5% marcaine. This was then followed by two discreet lesions performed at 80 degrees Celsius for 90 seconds each. The identical procedures were repeated on the left. The patient tolerated the procedure well without signs or symptoms of complications prior to transfer to the recovery area continued monitoring without incident. The patient was then transferred to the recovery area where they were observed for an appropriate period of time after the injection. The patient reported a VAS score of 8 prior to the procedure and a post-procedure VAS of 1. POST OP INSTRUCTIONS The patient was provided a Pain Log to continue to record the patient's response to the target-specific procedure prior to the patient's follow-up visit with the referring physician. Additionally, specific post-injection care instructions and a contact number to our office were provided if concerns arise regarding possible complications associated with the procedure are suspected.
== END 2025-08-17 09:40 | disposition home or self-care (01) ==
LOC: RAD 07:28
PROVIDERS: Family Provider Family Medicine; PCP Family Medicine; Referring Provider Physical Medicine & Rehabilitation; Visit Provider Physical Medicine & Rehabilitation
DX: M47.816 Spondylosis without myelopathy or radiculopathy, lumbar region (principal)
CPT/HCPCS: 64493; 64494; 99152; 99153; J2250